=== PATIENT | female | born 2000 | race Caucasian/White ===

== ENCOUNTER 2020-04-19 09:00 | Outpatient (RCR) | payer OTHER, SELFPAY ==
--- NOTE | 2020-04-19 09:08 | BH.SGPN.GN ---
Behaviors/Verbalizations/Mental Status: []Eye contact is fair. Alert and oriented. Motor activity is appropriate. Appearance is casual. grooming is appropriate. Speech is Appropriate. Mood is depressed. Affect is flat. Thoughts are linear and logical. No evidence of psychosis or hallucinations. Client Response/Progress/Benefit: []Pt engaged in session AEB pt listening to others and sharing thoughts and feelings. Pt stated a mental health positive as going to her job interview yesterday. Pt reported she is in a toxic work environment so has been looking for a new job. Pt shared it makes her anxious about making a change so hasn't made a decision on whether she will take the job. Pt reported additional mental health positive as showing up to IOP today despite having thoughts of not coming. Pt reported she showed up because she has a sense of commitment and knows it will be helpful. Pt stated current stressor is school because she gets anxious which leads her to get behind on her work and avoid catching up. Narrative Note: []
--- NOTE | 2020-04-19 10:10 | BH.SGPN.GN ---
Behaviors/Verbalizations/Mental Status: []Client alert and oriented, casually dressed, hygiene appeared to be tended to. Eye contact fair. Motor activity appropriate. Speech within normal limits. Affect constricted, mood anxious. Thoughts linear, logical, no signs of hallucinations or delusions. Client Response/Progress/Benefit: []Client responded well to session, attentive and took notes throughout session and engaged in group activity. The group identified benefits of failure as: learning new skills, gains perspective, and helps individuals learn to succeed. The group identified impacts of fear of failure as: keeps stagnant, keeps from seeking help, increase of hopelessness, and fear of change. Client seemed to connect how failures can lead to positive changes. Client appeared to benefit from gaining awareness of the impact fear of failure can have on one?s mental health and wellbeing. Progress noted as client was willing to participate in group activity using opposite action on first day of IOP program. Will continue IOP to increase the use of healthy coping skills and prevent decompensation. Narrative Note: []
--- NOTE | 2020-04-19 11:10 | BH.SGPN.GN ---
Behaviors/Verbalizations/Mental Status: []Client alert and oriented, neatly dressed and groomed. Eye contact fair. Motor activity appropriate. Speech within normal limits. Affect flat, mood anxious. Thoughts linear, logical, no signs of hallucinations or delusions. Client Response/Progress/Benefit: []Client responded well to session, participating during the group activity and sharing in small group discussion. Client completed the fear of failure worksheet and reported that fear of failure has kept client from talking to people, committing fully to school, and attending events. Client able to identify barriers that reinforce fear of failure which included: comparing self to others, ?what ifs,? and negative thinking. Client attentive during discussion of the different strategies to help overcome fear of failure. Client reports plan to overcome her black and white thinking by avoiding absolute statements. Client appeared to benefit from increasing insight to barriers and learning healthy coping skills. First day of IOP tx. Will continue IOP tx to prevent decompensation, increase social support, and learn healthy coping skills. Narrative Note: []
--- NOTE | 2020-04-19 12:05 | BH.COMM ---
Communication Note - Communication with Client Communication Note: Therapist met with client after her first day of IOP program for a brief check-in. Client did not have any questions or concerns. Client understood the concept of groups and reported feeling impacted by group discussion in a positive way. Appeared to be future oriented.
--- NOTE | 2020-04-19 15:47 | BH.COMM ---
Communication Note - Communication with Client Communication Note: Met with pt to complete initial paperwork. No changes since pre-admission screening. Completed [place] Suicide Screening with low risk. Endorses passive wishes of within the last month, but denies any SI, plan, or intent in the last month. Does have a history of SI in her lifetime that client describes as ?passive.? Denies any history of intent, plans, or attempts in her lifetime. Does not have access to weapons. Does not present as imminent danger to herself due to no active SI, plan, intent, or hx of attempts. Future-oriented.
--- NOTE | 2020-04-23 09:00 | BH.SGPN.GN ---
Behaviors/Verbalizations/Mental Status: []Client alert and oriented, casually dressed. Eye contact poor. Motor activity appropriate. Speech within normal limits. Affect constricted, mood anxious. Thoughts linear, logical, no signs of hallucinations or delusions. Reviewed client?s symptom tracker, client scored himself within his baseline on 04/23/20. Client Response/Progress/Benefit: []Client responded well to session, engaged throughout and participated in group discussion. Client reported feeling ?overwhelmed? this morning. Reported having a meeting with her advisor tomorrow and was anxious to open up about life stressors as well as being overwhelmed with her school workload. Stated she feels uncomfortable saying no which results in an increase of stress. Benefited from group as peers provided positive support and suggestions to help ease client stress about tomorrow. Client?s goal is to advocate for her needs and practice self-care prior to her meeting by reading affirmations. Progress noted as client was open to discussion and feedback. Will continue IOP to decrease anxiety, promote the use of healthy coping skills, and prevent decompensation. Narrative Note: []
--- NOTE | 2020-04-23 10:00 | BH.SGPN.GN ---
Behaviors/Verbalizations/Mental Status: [] Client alert and oriented, casually dressed and groomed. Eye contact fair to good. Motor activity appropriate. Speech within normal limits, limited input provided. Affect constricted, mood anxious and dysthymic. Thoughts linear, logical, no signs of hallucinations or delusions. Client Response/Progress/Benefit: [] Client attentive but passive participant AEB providing no input to discussion however was taking notes and listening attentively to peers. Group identified the benefits of having a support system such as: emotional release, ability to rebound quicker after a setback, gain perspective, and not feeling alone. Group discussed different types of support, and client nodded as fellow participants shared potential resources. Group also discussed the barriers to accessing support in which client noted connecting with several examples provided. Did well to engage more in the social support activity AEB actively working with the group to complete task at hand and was willing to take direction when prompted. Noted feeling anxious but did well to challenge herself to engage and sit with the uncomfortable. Seemed to benefit from increased awareness of potential benefits of social support. Will continue IOP tx to promote gains and further reduce mental health sx. Narrative Note: []
--- NOTE | 2020-04-23 15:11 | BH.MDN ---
Multi-Disciplinary Note - Note 60-min Individual Time Started:: 11:20 Date: 04/23/20 Purpose of session/treatment goals addressed:: The purpose of this session was to gather information on client's current stressors, symptoms, and treatment goals. Another goal was to build rapport and provide psychoeducation. Eye Contact:: Good Motor Activity:: Appropriate - sitting on hands throughout Appearance:: Casual - wearing winter cap throughout session Speech:: Appropriate Mood:: Anxious, Dysthymic Affect:: Congruent Thoughts:: Linear, Logical, No evidence of hallucinations/delusions noted Staff Interventions:: Therapist used active listening and open-ended questions to explore client's current stressors, symptoms, mh treatment history, and explore treatment goals. Therapist used strengths based approaches to build rapport and provide emotional support. Therapist provided psychoeducation on how intrusive thoughts can impact mental health sx. Therapist gave client encouragement and normalized the impact of mental health has on daily functioning. Client Response:: Client responded well to session, open to meeting with therapist. Client stated she has been in therapy on various occasions since the age of 6, but began regular weekly outpatient therapy her freshman year of high school. over the years. Client reported she has been working with Ana Root at [facility] for the past several years which she finds to be ?mostly helpful?. Indicated that they have been working to address client longstanding issues with anxiety, specifically intrusive thoughts of and illness. Client self-describes herself as an ?existential thinker? which she indicates often contribute to her intrusive thoughts and increase her overall feelings of anxiety and depression. Additionally, Client discussed that her family life is ?really messy and just bad?. Went on to share that her mother recently got remarried which has been ?really weird? and she has struggled to develop a relationship with her stepfather but is working to improve this. Eluded to not having a healthy relationship with her biological father but did go into further detail. Noted that she has historically used avoidance and distraction to cope but has found this to be ultimately unhelpful as it does not reduce sx in the long run. Client identified her treatment goals to be: deal with symptoms, improve daily functioning, improve independence and self-advocacy, as well as challenge herself to be ?more comfortable with the uncomfortable?. Client receptive to emotional support and encouragement. Client also receptive to learning about intrusive thoughts and how they impact one?s self-confidence and ability to manage mental health sx. Risks/Concerns:: Client denies any active suicidal ideations, plan, and intent as of 04/23/20. Protective factors include fear of dying, friends, and goals for her future. Reports motivation to get better. Progress Toward Goals/Plan:: Client's first week of IOP, reports she is trying to be more comfortable in the treatment environment. She reports enjoying group so far and is hopeful that she will be able to engage more as she spends more time in the group setting. Client endorses a depressed mood, apathy, anhedonia, decreased appetite, low self-esteem, ruminations, and constantly feeling anxious. Client's symptoms have been impacting her school performance and ability to engage with others. Will continue IOP tx to prevent decompensation, reduce intensity of symptoms, and improve daily functioning. Time Stopped:: 12:20
--- NOTE | 2020-04-23 15:13 | BH.MTP ---
Master Treatment Plan - Patient Information Program Physician:: Dr. William Primary Therapist:: Nichelle Burnette - Psychiatric Diagnoses Psychiatric Diagnoses:: Major depressive disorder, recurrent, severe without psychosis; generalized anxiety disorder; obsessive-compulsive disorder history; mild autism spectrum disorder Diagnosis Code(s):: F33.2 - Estimated LOS Estimated LOS (in weeks):: 6 Problem/Goal #1 - Problem/Goal #1 Stated Goal:: Client will reduce depressive symptoms, passive thoughts of , and feelings of worthlessness due to Major Depressive Disorder through Intensive Outpatient Program. Description of Barriers: Limited support, difficulties communicating and advocating for mental health needs, difficulties setting boundaries, social anxiety which may impact group participation/engagement. Functional Impact: Patient is a 20-year-old female with a history of depression, anxiety, OCD and mild autism spectrum disorder who is referred by self to the [facility] behavioral health IOP program due to worsening symptoms of depression, anxiety and passive suicidal ideation for the past month. Client reports she has been unable to function at work or at home due to her worsening symptoms and almost quit her job as a result. At time of admission, Client endorsing difficulties leaving the house, apathy, anhedonia, limited motivation, interrupted sleep, decreased appetite, passive SI w/o plan or intent, feelings of worthlessness and hopelessness, poor decision making, rumination, decreased concentration, and crying spells. Current sx are impacting social, occupational, and educational areas. Reports she sometimes finds it hard to leave the house but is able to come to the IOP program. Limited supports but reports her for primary support she has her mom and friend some friends. Goal Relevant Strengths/Supports: CLient has had previous mental health tx and is familar with terms/treatment modalities, reports motivation to improve, willingness to try new interventions, intelligent, has insight into triggers and barriers - Objectives Objective #1 Stated Objective: Client will learn and utilize 2-3 healthy coping strategies to manage depressive symptoms and decrease use of unhealthy coping skills. Interventions: Therapist will assist client in learning internal coping strategies to manage depressive symptoms, along with helping client identify triggers and replace unhealthy coping skills. Discharge Criteria: Client will have achieved this goal when can verbalize 2-3 healthy coping skills and reports coping skills effectively managing depressive symptoms. Target Date: 06/01/20 Review Date: 05/18/20 Objective #2 Stated Objective: Pt will decrease depressive symptoms AEB pt?s score on the DSM 5 cross-cutting measure and improve pt?s daily functioning. Interventions: Through groups and individual therapy, pt will be provided with education on cognitive distortions, mistaken beliefs, and identifying and combating negative self-talk. Therapist will assist pt with getting back into the activities she once enjoyed as well as increasing healthy coping strategies. Discharge Criteria: Pt will have met this goal when pt?s score on the DSM 5 cross cutting measure for depression has been decreased and per pt?s report daily functioning has improved Target Date: 06/01/20 Review Date: 05/18/20 Problem/Goal #2 - Problem/Goal #2 Stated Goal:: Stabilize anxiety levels while increasing ability to function and decreasing ruminative thoughts on a daily basis through Intensive Outpatient Program. Description of Barriers: Limited support, difficulties communicating and advocating for mental health needs, difficulties setting boundaries, social anxiety which may impact group participation/engagement. Functional Impact: Patient is a 20-year-old female with a history of depression, anxiety, OCD and mild autism spectrum disorder who is referred by self to the [facility] behavioral health IOP program due to worsening symptoms of depression, anxiety and passive suicidal ideation for the past month. Client reports she has been unable to function at work or at home due to her worsening symptoms and almost quit her job as a result. At time of admission, Client endorsing difficulties leaving the house, apathy, anhedonia, limited motivation, interrupted sleep, decreased appetite, passive SI w/o plan or intent, feelings of worthlessness and hopelessness, poor decision making, rumination, decreased concentration, and crying spells. Current sx are impacting social, occupational, and educational areas. Reports she sometimes finds it hard to leave the house but is able to come to the IOP program. Limited supports but reports her for primary support she has her mom and friend some friends. Goal Relevant Strengths/Supports: CLient has had previous mental health tx and is familar with terms/treatment modalities, reports motivation to improve, willingness to try new interventions, intelligent, has insight into triggers and barriers - Objectives Objective #1 Stated Objective: Client will learn and implement 2-3 calming skills to reduce overall anxiety and decrease avoidance behavior. Interventions: Therapist will teach client calming/relaxation skills. Assist pt with identifying warning signs and triggers to increased anxiety. Teach pt in the moment strategies to manage emotions when in anxiety provoking situation. Discharge Criteria: Client will have achieved this goal when can verbalize at least 2 calming skills and report decrease in avoidance of anxious situations. Target Date: 06/01/20 Review Date: 05/18/20 Objective #2 Stated Objective: Pt will decrease anxious symptoms AEB pt?s score on the DSM 5 cross-cutting measure improve pt?s daily functioning. Interventions: Through groups and individual therapy, pt will be provided education about anxiety?s impact on body and common physiological reaction to anxiety. Therapist will teach pt appropriate breathing techniques and build healthy coping skills to manage daily anxieties. Discharge Criteria: Pt will have met this goal when pt?s score on the DSM 5 cross cutting measure for anxiety has been decreased and per pt?s report daily functioning has improved. Target Date: 06/01/20 Review Date: 05/18/20
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
--- NOTE | 2020-04-25 09:40 | BH.NA ---
Physical Data - Vital Signs Pulse Rate: 75 Blood Pressure: 121/80 - Height/Weight Height: 1.57 m Weight:: 53.524 kg Weight in Pounds: 118.0 lbs Nutritional History - Appetite Nutritional Instructions:: If client shows signs of a swallowing problem, weight change of 10 pounds or more in the last month, or is on a diabetic diet, the physician will review and request a dietitian consult, as appropriate. All unintentional weight loss will be referred to the physician for decision on need for dietitian consult. Describe your appetite:: Fair Additional nutritional information:: Client states she has noticed a decrease in her appetite. Functional Assessment - Sleep Pattern Describe any problems with sleeping: Client states she sleeps 8-10 hours per night. - Activities Motor Activity:: Functional Sensory/Communication Assess - Communication Problems Do you have difficulty understanding what people are saying?: No Medical Problems/History - Additional History Additional comments:: depression, anxiety Surgical History - Surgical History Have you had any surgeries? If so, list type and date:: No Substance Abuse - Substance Abuse Please describe substance abuse in the last 30 days:: Client states she drinks alcohol once per week. Client denies tobacco or substance use. Client states she drinks caffiene once per day. Mental Status Summary - Mental Status Significant Findings/Observations on Appearance and Mood:: Client is alert and oriented x 4. Client is casually groomed with good hygiene. Client is wearing a mask due to COVID 19 pandemic. Client makes poor eye contact and speaks with soft voice. Client appears mildly depressed and anxious. Client makes logical associations. Client denies delusions/hallucinations. Client reports passive SI with no plan. Suicide Assessment - Suicidal Ideation Are you currently or have you been suicidal in the past?: Yes - passive SI would not care if I didn't wake up in the morning Suicidal Intentional Rating Scale (SIRS): Current suicidal thoughts/No plan/Contracts for safety Physician Notification: If Active suicidal thoughts/Will not contract for safety is checked, contact physician and document in the Physician Notification section below. Past Psychiatric History - MH Treatment Hx Past Psychiatric Medications:: Prozac Age of first mental health symptoms: Client states she was diagnosed with anxiety and depression around age 14. Describe (age, circumstance, etc) any past hospitalizations: None Current providers for mental health treatment (counselor, psychiatrist, shoe parts caser, etc.): [facility] Fall Risk Assessment - Age Age: Less than 60 - Mental Status Mental Status: Willing & able to ask for assistance when needed - Physical Status Physical Status: No problems - Impairments Impairments: None - Elimination Elimination: Continent AND independent - Gait or Balance Gait or Balance: Walks independently - Hx of Falls History of falls in the past 6 months: No known history - Medications/Substances Medications/substances used within the past 24 hours or ordered to administer: None of the medications/substances list above - Total Score Total Points:: 0 RN Summary of Impressions - Impressions Recommendations: Include psychiatric and medical issues, treatment planning recommendations, and discharge planning needs. Impressions: Psychiatric Issues: major depressive disorder, recurrent, severe without psychosis; generalized anxiety disorder; obsessive-compulsive disorder history; mild autism spectrum disorder - Level of Care How do the client's current symptoms and functional deficits support need for this level of care?: Client self-referred herself to IOP after feelings of depression and limited benefits from outpatient counseling. Client reports she has been feeling mental health symptoms for awhile, reporting decreased motivation and feeling like What I was doing wasn't working. Client endorses low energy, anhedonia, feelings of worthlessness and feeling overwhelmed. Client reports passive SI, stating she does not have a suidical plan but states she sometimes wouldn't mind if I didn't wake up tomorrow. IOP will promote gains and prevent further decompensation while providing social support and skills training.
[2020-04-25 10:02] VITALS: BP 121/80; PULSE 75
--- NOTE | 2020-04-25 10:10 | BH.SGPN.GN ---
Behaviors/Verbalizations/Mental Status: []Client alert and oriented, neatly dressed and groomed. Eye contact fair. Motor activity appropriate. Speech within normal limits. Affect constricted, mood anxious and dysthymic. Thoughts linear, logical, no signs of hallucinations or delusions. Client Response/Progress/Benefit: []Pt was a passive participant in group discussion and was attentive during psychoeducation. Participated in short activity about automatic thoughts. Group was primarily educational and introduced and gave examples of the 10 cognitive distortions. Benefited from education and increased awareness of cognitive distortions and role that they play in negative thoughts and emotions. Pt has severe social anxiety, so she is quiet during group sessions. Will continue IOP tx to prevent decompensation, increase healthy coping skills, and improve daily functioning impacted by anxiety. Narrative Note: []
--- NOTE | 2020-04-25 11:10 | BH.SGPN.GN ---
Behaviors/Verbalizations/Mental Status: []Client alert and oriented, casual dress, hygiene tended to. Eye contact poor. Motor activity appropriate. Speech within normal limits. Affect flat. Mood anxious and depressed. Thoughts linear, logical, no signs of hallucinations or delusions. Client Response/Progress/Benefit: []Client was a passive participant AEB client only providing input during small group work, appeared to listen attentively to peers and completed worksheet. Client attentive during psychoeducation and additional discussion on cognitive distortions. Client appeared to listen to discussion on how to reframe distorted thoughts into more realistic, rational statements. in small group client shared her distorted thought is If this assignment isn't the best I could possibly do then I'm not going to turn it in. Client able to reframe distorted thought to There are always revisions you can make that doesn't mean it's not good. Also you can't get a good grade if you don't turn anything in. Client seemed to benefit from practicing identifying and reframing distorted thoughts. client is to continue IOP to increase use of healthy coping, decrease anxious symptoms and prevent decompensation.
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
--- NOTE | 2020-04-25 12:56 | BH.DR.ITP ---
Initial Treatment Plan - Patient Information Visit Information: ADMISSION DATE: EXPECTED LOS: 4-6 weeks - Problems/Symptoms Problem #1:: Depression Symptom:: Worthlessness, hopelessness, sadness, anhedonia, decreased appetite, disruption of sleep, passive suicidal ideation, passive thoughts of Problem #2:: Anxiety Symptom:: Worry, negative rumination, mild rituals
--- NOTE | 2020-04-26 09:00 | BH.SGPN.GN ---
Behaviors/Verbalizations/Mental Status: []Client alert and oriented, neatly dressed and groomed. Eye contact fair. Motor activity appropriate. Speech within normal limits. Affect flat, mood dysthymic and anxious. Thoughts linear, logical, no signs of hallucinations or delusions. Reviewed client?s symptom tracker, no risk for suicidal ideation, plan, or intent as of 04/26/20 Client Response/Progress/Benefit: []client responded well to session, anxious, but participated in check-in. Client reports feeling indifferent this morning as client has several stressors she does not know how to cope with. Client reported she had put her two-week notice in at her job, but because her boss never acknowledged this, client has kept working despite it being past two-weeks. Client admits to a long-standing history of not being able to set boundaries or self-advocate. Client shared she struggles with indecisiveness in many areas of her life. Client also feels stressed about a recent appointment with her academic director. Client stated a positive was that she showed up for the meeting, but client did not advocate for the classes she wanted. Client received supportive statements from peers and wallpaper inspector. Progress limited as client's anxiety continues to impair her functioning. Will continue IOP tx to prevent decompensation, increase healthy boundaries, and improve mood stability. Narrative Note: []
--- NOTE | 2020-04-26 10:08 | BH.SGPN.GN ---
Behaviors/Verbalizations/Mental Status: [] Client alert and oriented, casually dressed and groomed. Eye contact fair, often looking down or away. Motor activity appropriate. Speech within normal limits, minimal input provided. Affect constricted, mood anxious and depressed. Thoughts linear, logical, no signs of hallucinations or delusions. Client Response/Progress/Benefit: [] Client receptive to session, passive participant but remained engaged AEB listening and taking notes throughout. Appeared to connect with topic as the group brainstormed the positive and negative aspects of stress on physical and mental health. Client often struggled to maintain eye contact and was looking down or away a majority of session, which may be attributed to self-report of increase in social anxiety. Client willing to complete stress jar activity in which participants identified current stressors impacting mental health; however, declined to share with group. Progress is unable to be determined due to limited input provided. Continued avoidance may impact ability to manage social anxiety long-term. Recommended to continue with IOP tx to improve skill application, further reduce symptomology, and prevent decompensation. Narrative Note: []
--- NOTE | 2020-04-26 11:12 | BH.SGPN.GN ---
Behaviors/Verbalizations/Mental Status: []Client alert and oriented, casually dressed and groomed. Eye contact poor. Motor activity appropriate. Speech within normal limits. Affect constricted, mood anxious. Thoughts linear, logical, no signs of hallucinations or delusions. Client Response/Progress/Benefit: []Client mostly passive participant in session AEB choosing to not provide input in front of group, however appeared to listen attentively to others and taking notes throughout. Client remained attentive during discussion about the 4 A's of managing stress and discussed connecting with the various benefits of each. Individually to therapist client stated she wants to work on stressor of school. Client reported she is going to alter her expectations of self because she recognizes expectations are often unrealistic. Client seemed to benefit from increased awareness of the impact of stress on mental health and increasing repertoire of stress management strategies. Client is to continue IOP level of care to decrease anxiety, increase healthy coping and prevent decompensation. Narrative Note: []
== END 2020-04-29 23:59 ==
LOC: BHIOP 09:00
PROVIDERS: Referring Provider Psychiatry & Neurology Psychiatry; Visit Provider Psychiatry & Neurology Psychiatry
DX: F33.2 Major depressive disorder, recurrent severe without psychotic features (principal); F41.1 Generalized anxiety disorder; F42.9 Obsessive-compulsive disorder, unspecified; F84.0 Autistic disorder; Z79.899 Other long term (current) drug therapy; Z81.8 Family history of other mental and behavioral disorders
CPT/HCPCS: H0035; 90837; 90853

== ENCOUNTER 2020-04-30 09:00 | Outpatient (RCR) | payer OTHER, SELFPAY ==
[2020-04-30 00:39] VITALS: BP 121/80; PULSE 75
--- NOTE | 2020-04-30 09:00 | BH.SGPN.GN ---
Behaviors/Verbalizations/Mental Status: []Client alert and oriented, casually dressed. Eye contact poor to fair. Motor activity appropriate. Speech within normal limits. Affect constricted, mood anxious. Thoughts linear, logical, no signs of hallucinations or delusions. Reviewed client?s symptom tracker, no risk or plan for suicide ideation, plan, or intent as of 04/30/20. Client Response/Progress/Benefit: []Client responded well to session, engaged throughout and participated in group discussion. Client reported feeling ?unsettled? this morning as her stressors were intense over the weekend. Client reported having uncomfortable feelings with providing support to others related to over the weekend. Client stated she tried to detach herself from feeling sadness as well as feeling uncomfortable. Benefited from group as other group members provided positive support and feedback to allow client to feel validated. Client shared her positive as making it through the weekend and attending IOP group today. Progress noted as client remains future oriented, but client continues to report avoidance behaviors and anxiety that hinder functioning. Will continue IOP to increase the use of healthy coping skills, challenge negative thoughts, and prevent decompensation. Narrative Note: []
--- NOTE | 2020-04-30 10:07 | BH.SGPN.GN ---
Behaviors/Verbalizations/Mental Status: []Alert and oriented. Eye contact is fair. Motor activity is appropriate. Appearance is casual. Speech is Appropriate. Mood is anxious and depressed. Affect is constricted. Thoughts are linear and logical. No evidence of psychosis. Client Response/Progress/Benefit: []Pt was a passive participant AEB pt not making any contributions throughout group session. Appeared to be attentive during psychoeducation. Client listened as group worked together to identify forces that can impact growth and overall mental health. Listened to group identify internal and external forces of life. Pt seemed benefited from increased awareness of the impact positive and negative forces can have on mental health and personal growth. Will continue in IOP to improve emotional regulation, increase anxiety reduction techniques and prevent decompensation. Narrative Note: []
--- NOTE | 2020-04-30 11:10 | BH.SGPN.GN ---
Behaviors/Verbalizations/Mental Status: [] Eye contact is fair to good. Alert and oriented. Motor activity is appropriate. Appearance is casual. grooming is appropriate. Speech appropriate, limited input provided. Mood is anxious and depressed. Affect is constricted. Thoughts are linear and logical. No evidence of psychosis or hallucinations. Client Response/Progress/Benefit: [] Pt receptive of session, listened attentively to peers and participated in the activity. Did well to provide some input to group discussion when prompted, however continues to struggle in this area. Group processed the activity and identified positive and negative forces impacting ability to complete the challenge. Pt nodding as group discussed the positive and negative impacts communication had on ability to complete challenge activity. Pt was attentive during psychoeducation and appeared to benefit from increased insight on the impact of negative and positive forces on mental wellness. Completed the personal forces identification worksheet. Identified wanting to focus on increasing healthy relationships and supports as a positive force on her mental health. Noted she could start by setting more boundaries with toxic supports. Pt recommended continued IOP tx to improve healthy coping skills, reduce mental health sx, and prevent decompensation. Narrative Note: []
--- NOTE | 2020-04-30 14:31 | BH.COMM ---
Communication Note - Communication with Client Communication Note: Therapist contacted pt outpatient therapist to discuss treatment goals and coordinate care. Will continue to provide regular updates on pt progress.
--- NOTE | 2020-05-01 08:21 | BH.COMM ---
Communication Note - Communication with Client Communication Note: Client continues to decline psychiatry services and reports not taking any psychiatric medications at this time. Reports no plans to begin psychiatric medication and would prefer not to meet with program psychiatrist.
--- NOTE | 2020-05-01 10:10 | BH.SGPN.GN ---
Behaviors/Verbalizations/Mental Status: [] Client alert and oriented, casually dressed and appropriately groomed. Eye contact fair, often looking down/away. Motor activity appropriate. Speech within normal limits. Affect congruent, mood anxious and apathetic, Thoughts linear, logical, no signs of hallucinations or delusions. Client Response/Progress/Benefit: []Client receptive of session, attentive and taking notes throughout however continues to struggle with providing input. Client reports plans to begin challenging self to increase group participation. Client appeared to connect with topic of communication AEB actively listening, nodding, and taking notes. Group identified potential barriers to healthy communication as: high emotions, making assumptions, shutting down, and not being honest with self/others. Remained attentive during psychoeducation on the four communication styles, providing input throughout. Client shared connecting most with the passive communication style, indicating she often tries to avoid confrontation when possible. Benefited from increased insight regarding own communication style and impacts this has on overall mental health. Progress limited as client continues to struggle with engagement in group setting. Client will continue IOP to improve healthy coping skills, reduce mental health sx, and prevent decompensation. Narrative Note: []
--- NOTE | 2020-05-01 11:15 | BH.SGPN.GN ---
Behaviors/Verbalizations/Mental Status: []Client alert and oriented, casually dressed and appropriately groomed. Eye contact fair. Motor activity appropriate. Speech WNL. Affect constricted, mood dysthymic and anxious. Thoughts linear, logical, no signs of hallucinations or delusions. Client Response/Progress/Benefit: []Client responded well to session AEB client listening attentively to others and providing input during group discussion on the pay offs and costs of the different communication styles. Client identified she most often has passive style of communication which results in her needs not getting met. Attentive during psychoeducation on interpersonal DBT skill MINDI and client selected a communication skill to practice. Client selected the skill of asserting herself which she will first practice at work. Client seemed to benefit from increasing awareness of healthy strategies to improve communication. Will continue IOP tx to increase consistent use of healthy coping, improve confidence and prevent decompensation.
--- NOTE | 2020-05-01 11:27 | BH.MDN_ITS ---
Multi-Disciplinary Note - Note 45-min Individual Time Started:: 09:23 Date: 05/01/20 Purpose of session/treatment goals addressed:: The purpose of this session was to work on goal #2 objective #1 and objective #2 of client's tx plan. Eye Contact:: Fair - often looking down or away throughout discussion Motor Activity:: Appropriate Appearance:: Casual Speech:: Appropriate Mood:: Anxious, Dysthymic Affect:: Congruent Thoughts:: Linear, Logical, No evidence of hallucinations/delusions noted Staff Interventions:: Therapist provided psychoeducation on anxiety maintenance cycles and safety behaviors reinforcing these cycles. Therapist worked with client to identify impact of avoidance in reinforcing decisional anxiety. Used Motivational Interviewing to aid Client in identifying a small, realistic goal for beginning to break unhealthy maintenance cycles. Client Response:: Client responded well to session, open to meeting with therapist. Client reports since last week she has been coping with the loss of a friend?s sister better. Reports she feels she is able to do so by not focusing on the existential thoughts she has related to this stressor. Noted her depression has been less of an issue and is struggling more with anxiety at the moment. Explained she often struggles with making decisions about ?anything really. I struggle to even decide what to eat because I don?t want to make the wrong decision, so I just don?t eat anything?. Able to connect with psychoeducation on anxiety maintenance cycles and safety behaviors. Client identified the role avoidance has played in maintaining indecisiveness. Client and therapist discussed strategies for beginning to address anxiety and reviewed the importance of exposure in reducing overall discomfort causing increased anxiety. Client identified a small goal of working on reducing avoidance by challenging herself to speak once in group setting on days she attends IOP program. Risks/Concerns:: None noted. Client denies any active SI, plan, or intent to date. Future oriented AEB discussing plans for summer. Progress Toward Goals/Plan:: Client appears to be responding well to tx AEB client's consistent attendance and willingness to begin working to improve overall group engagement. Client noted improved ability to replace negative thoughts over the weekend. She continues to endorse an apathetic mood, ruminatio ns and intrusive thoughts, difficulties in making decisions, and low self- esteem. Client is still not functioning at her baseline. Client will continue IOP tx to prevent decompensation, improve daily functioning, and increase self- care. Time Stopped:: 10:03
--- NOTE | 2020-05-03 09:05 | BH.SGPN.GN ---
Behaviors/Verbalizations/Mental Status: []Client alert and oriented, casually dressed. Eye contact poor. Motor activity appropriate. Speech within normal limits. Affect flat, mood anxious. Thoughts linear, logical, no signs of hallucinations or delusions. Reviewed client?s symptom tracker, no risk or plan for suicide ideation. Client Response/Progress/Benefit: []Pt responded well to session AEB pt listening attentively to others and sharing thoughts and feelings. Pt stated a mental health positive was making decision to on a family vacation. Pt reported she had been avoiding make a decision because gets too anxious about what to do. Pt admitted she kind of took the pressure off herself to make the decision by asking if a friend would go with her and when the friend said yes then that made the decision for her. Pt stated current stressor is recognizing she is avoiding a lot of things in life, which she recognizes doesn't help her anxiety. Pt seemed to benefit from support from peers. Pt to continue IOP to increase healthy coping, decrease avoidance behavior and prevent decompensation. Narrative Note: []
--- NOTE | 2020-05-03 10:07 | BH.SGPN.GN ---
Behaviors/Verbalizations/Mental Status: []Client alert and oriented, neatly dressed and groomed. Eye contact avoidant. Motor activity appropriate. Speech within normal limits. Affect flat, mood anxious. Thoughts linear, logical, no signs of hallucinations or delusions. Client Response/Progress/Benefit: []Client was a passive participant and appeared highly anxious AEB restlessness and avoidant eye contact. Client listened to the discussion of self-care. Client listened as the group discussed consequences of not practicing self-care. Client listened during the discussion of the common myths about self-care and debunking of these myths. The group shared how these myths have turned into personal barriers for them. Client seemed to benefit from increased awareness of the importance of self-care and challenging common myths that prevent practicing self-care. Client continues to be highly anxious in group setting, but appears to be getting along well with peers. Will continue IOP tx to prevent decompensation and increase coping skills to manage anxiety that impairs functioning. Narrative Note: []
--- NOTE | 2020-05-03 11:07 | BH.SGPN.GN ---
Behaviors/Verbalizations/Mental Status: []Client alert and oriented, casually dressed and groomed. Eye contact fair, often avoidant. Motor activity restless. Speech within normal limits, limited input provided. Affect congruent, mood anxious and depressed. Thoughts linear, logical, no signs of hallucinations or delusions. Client Response/Progress/Benefit: []Client continues to struggle with being an active participant in group sessions. Often is willing to participate in challenge activity as well as listen attentively to peers, however struggles with contributing to discussion. Attentive during group discussion on the various areas of self-care and types of self-care activities for each area. Client willing to begin working on worksheet in which she reflected on current self-care practices and identified what self-care activities she wants to start using. Client shared that she would like to improve physical self-care. Indicated plans to work on this by working on eating more regular meals. Struggles with identifying strategies to aid in successfully accomplishing this goal however responded well to suggestions provided such as planning meals ahead of time. Client progress limited as difficulties engaging continue to reinforce sx of anxiety. Will continue IOP tx to further promote the use of healthy coping skills, reduce mental health sx, and improve daily functioning. Narrative Note: []
--- NOTE | 2020-05-07 09:00 | BH.SGPN.GN ---
Behaviors/Verbalizations/Mental Status: []Client alert and oriented, casually dressed. Eye contact fair. Motor activity appropriate. Speech within normal limits. Affect constricted, mood anxious. Thoughts linear, logical, no signs of hallucinations or delusions. Reviewed client?s symptom tracker, no risk or plan for suicide ideation, plan, or intent as of 05/07/20. Client Response/Progress/Benefit: []Client responded well to session, engaged throughout and participated in group discussion. Client reported feeling ?wired? this morning. Client was unable to think of current goals related to treatment. Reported a positive and stressor as driving to a friend late at night to help her, although client was unable to say no to transporting a friend to multiple locations. Client said she was feeling anxious but did not say anything to her friend. Client identified a healthy coping skill as listening to calming music on her drive to reduce anxiety. Benefited from group as peers provided positive support and ideas to improve boundary setting. Will continue IOP to increase the use of healthy coping skills, set appropriate boundaries, and increase self-advocacy. Narrative Note: []
--- NOTE | 2020-05-07 10:05 | BH.SGPN.GN ---
Behaviors/Verbalizations/Mental Status: []Client alert and oriented, neatly dressed and groomed. Eye contact avoidant. Motor activity restless. Speech within normal limits. Affect flat, mood anxious. Thoughts linear, logical, no signs of hallucinations or delusions. Client Response/Progress/Benefit: []Client somewhat engaged participant AEB listening attentively to peers, but appeared distracted and anxious. Group discussed the quote as well as unhealthy coping skills. Group gave examples of unhealthy coping skills such as: personalizing, avoiding, substance use, isolation, and lashing out. The group stated unhealthy coping skills tend to be easy, habitual, and temporary relief. Client was quiet during discussion, but client participated in the group activity. Client seemed to benefit from increased awareness of the importance of increasing healthy coping skills and consequences of utilizing unhealthy coping skills. Client?s progress continues to be minimal as client reports difficulty saying no when anxious which reinforces her mental health symptoms. Will continue IOP tx to reduce avoidance behaviors, learn to set healthy boundaries, and improve mood stability. Narrative Note: []
--- NOTE | 2020-05-07 11:07 | BH.SGPN.GN ---
Behaviors/Verbalizations/Mental Status: [] Client alert and oriented, casual dress, hygiene tended to. Eye contact fair, often avoidant. Motor activity appropriate. Speech within normal limits, limited input provided. Affect constricted, mood depressed and anxious. Thoughts linear, logical, no signs of hallucinations or delusions. Client Response/Progress/Benefit: [] Client responded well to session, actively listening, and at times taking notes throughout. Continues to struggle with participation and often looks down or away to avoid providing input to discussion. Continued avoidance may be reinforcing anxiety and preventing lasting progress. Group discussed the different categories of coping skills which included distraction, emotional release, grounding, self-love, and thought challenging. With prompt, client participated in creating a coping skills ?menu? from the five categories of coping skills. Client's coping skill menu included: reading, art, deep breathing, keeping track of accomplishments, asking herself ?What would I tell a friend?? when struggling with distorted thoughts. Shared she would like to focus more on using art to cope when feeling emotionally overwhelmed and keeping track of daily accomplishments. Progress limited as client continues to struggle with consistent application of skills learned. Appeared to benefit from increasing repertoire of healthy coping skills. Will continue tx to continue challenging distorted thoughts, increase mental health sx management, and prevent decompensation. Narrative Note: []
--- NOTE | 2020-05-08 11:10 | BH.SGPN.GN ---
Behaviors/Verbalizations/Mental Status: []Client alert and oriented, casually dressed and groomed. Eye contact avoidant at times. Motor activity appropriate. Speech within normal limits. Affect flat, mood anxious. Thoughts linear, logical, no signs of hallucinations or delusions. Client Response/Progress/Benefit: []Client was an active participant in activity, but quiet while group brainstormed strategies. Engaged during activity and listened to ideas on how to cope with internal barriers that keep clients stuck from moving towards goals. Barriers identified by client included: avoidance, fear of failure, indecision, and lack of confidence. Strategies identified for overcoming these barriers included: thought challenging, opposite action, decisional balance, setting a time limit, and writing lists. Client wants to work on overcoming the barrier of indecision by making a list of things she has to do each day and focus on getting one thing done. Benefited from group by identifying obstacles and solutions to desired reality. Client continues to be passive in group and has been struggling with implementing coping skills outside of IOP. Will continue IOP tx to reduce avoidance, improve daily functioning, and combat distortions. Narrative Note: []
--- NOTE | 2020-05-08 14:15 | BH.MDN ---
Multi-Disciplinary Note - Note 45-min Individual Time Started:: 10:14 Date: 05/08/20 Purpose of session/treatment goals addressed:: Purpose of session was to assess pt's current symptoms and stressors. Other topics included addressing Treatment goal #2 objectives# 1 and #2. Eye Contact:: Fair Motor Activity:: Restless Appearance:: Casual Speech:: Appropriate Mood:: Anxious, Depressed Affect:: Congruent Thoughts:: Logical, Racing, No evidence of hallucinations/delusions noted Staff Interventions:: Therapist used open ended questions to elicit information on pt's current symptoms and stressors, as well as coping skill application. Reviewed homework and discussed barriers preventing homework completion and reinforcing avoidance behaviors. Used Behavior Chain Analysis to highlight role of continued avoidance in reinforcing anxiety and preventing long-term goal achievement. Applied Behavior Activation skills to identify small goals for reducing avoidance and promoting help-seeking behaviors. Client Response:: Client responded well to session, open to meeting with therapist. Noted not completing homework to engage at least once in group and discussed strategies for promoting group participation moving forward. Client reports she is currently struggling with feeling ?really overwhelmed? by her schoolwork and fears she may fail. Upon further discussion Client revealed she had been avoiding completing assignments and skipped several classes which has resulted in her being behind in class and ultimately dropping several courses. Noted she is able to take new courses or retake the courses she was failing but fears she will fall back into the same pattern of behaviors and ultimately end up failing again. Willing to work with therapist on challenging distortions of absolute thinking, catastrophizing, and overgeneralizing. Completed behavior chain analysis to identify how avoidance as a safety behavior has impacted school performance and reinforced self-deprecating thoughts. Client identified at times giving into avoidance behaviors because ?it?s easier if I make myself fail than if I have to face failure?. Discussed strategies for beginning to combat avoidance and proactively set herself up for success academically. Identified that informing her professors of her anxiety may be helpful in promoting attendance and reducing fear they will not be understanding if she becomes overwhelmed. Client struggled with committing to self-identified plan of asking professors for help; however, upon reviewing potential costs of not asking for help was agreeable to start by emailing one professor to ask for help this week. Risks/Concerns:: None noted. Client denies any active SI, plan, or intent to date. Future oriented AEB discussing plans to attend IOP tx . Progress Toward Goals/Plan:: Client continues to report finding the group environment helpful but struggles with anxiety about providing input to groups. Expressed feeling uncomfortable and fears she will make a mistake so she avoids engagement. Expressed this is similar in completing anxiety provoking tasks in daily life and avoidance has reach the point in which she is now struggling to complete her academic needs. Client has insight into barriers and potential skills for addressing identified barriers but struggles with follow-through. She continues to endorse an apathetic mood, ruminations and intrusive thoughts, difficulties in making decisions, and low self-esteem. Client is still not functioning at her baseline. Client will continue IOP tx to prevent decompensation, improve daily functioning, and increase self-care. Time Stopped:: 10:54
--- NOTE | 2020-05-10 09:05 | BH.SGPN.GN ---
Behaviors/Verbalizations/Mental Status: []Client alert and oriented, casually dressed and appropriately groomed. Eye contact fair. Motor activity appropriate. Speech within normal limits. Affect constricted, mood anxious and depressed. Thoughts linear, logical, no signs of hallucinations or delusions. Per symptom tracker pt denies suicidal ideation, plan or intention to date. Client Response/Progress/Benefit: []Pt responded well to session as evidenced by pt openly sharing thoughts and feelings. Pt connected with peer during check-in. Pt stated she is also having a difficult time ending a relationship. pt reported she recognizes current relationship is not healthy but continues to maintain relationship because has limited support. Pt stated she has a hard time setting boundaries. Pt identified a mental health positive as going on a walk and being more active because of a cardio class she signed up for during this semester. Pt progress variable AEB pt continuing to struggle with setting boundaries and utilizing skills outside treatment environment. Pt to continue IOP to increase healthy coping, reduce avoidance behavior and prevent decompensation. Narrative Note: []
--- NOTE | 2020-05-10 10:15 | BH.SGPN.GN ---
Behaviors/Verbalizations/Mental Status: []Client alert and oriented, casually dressed and groomed. Eye contact fair to good. Motor activity appropriate. Speech within normal limits. Affect congruent, mood dysthymic and anxious. Thoughts linear, logical, no signs of hallucinations or delusions Client Response/Progress/Benefit: []Client engaged in session AEB client providing input when prompted, taking notes, and listening attentively to peers. Client shared connecting with the importance of setting boundaries in order to improve mental health and reduce anxiety. Client assisted group with identifying barriers to setting healthy boundaries. These included: past negative experiences, low self-worth, fear they won?t respect them, fear of hurting others, and distorted thoughts. Shared a barrier she has experienced in the past is feeling she does not have the ?personal strength? to say ?no? to others. Client attentive during psychoeducation on the types of boundaries. Listened as participants provided examples and noted struggling to time boundaries when it comes to work/school life balance. Client seemed to benefit from increased awareness of how boundaries impact mental health. Will continue IOP tx to improve use of healthy coping, improve confidence levels, and reduce mental health sx. Narrative Note: []
--- NOTE | 2020-05-10 11:15 | BH.SGPN.GN ---
Behaviors/Verbalizations/Mental Status: []Client alert and oriented, neatly dressed and groomed. Eye contact fair-improved from previous sessions. Motor activity appropriate. Speech within normal limits. Affect constricted, mood anxious. Thoughts linear, logical, no signs of hallucinations or delusions. Client Response/Progress/Benefit: []Client responded well to session, connecting with peers and receptive to supportive statements. Client engaged in the boundary self-assessment activity and attentive during psychoeducation on the different boundary styles. Client reported ?I?m a mix of porous and rigid.? Client stated she avoids making new relationships and she keeps her emotions to herself. However, client reports that with her current supports, client feels unable to say no or set boundaries. Client reports this increases anxiety and negative self-talk. Client participated in brainstorming strategies to improve boundary setting and reports wanting to work on practicing honest self-reflection. Progress noted in client?s increased participation today. Client to continue IOP tx to prevent decompensation, reduce avoidance behaviors, and improve daily functioning. Narrative Note: []
--- NOTE | 2020-05-15 14:53 | BH.MTP_ITS ---
Treatment Plan Review Date of Admission:: 04/19/20 Date of Treatment Plan Review:: 05/16/20 Admitting Diagnoses:: Major depressive disorder, recurrent, severe without psychosis; generalized anxiety disorder; obsessive-compulsive disorder history; mild autism spectrum disorder Current Diagnoses:: Major depressive disorder, recurrent, severe without psychosis; generalized anxiety disorder; obsessive-compulsive disorder history; mild autism spectrum disorder Patient's Response to Treatment:: Client has been responding somewhat well to treatment, though is demonstrating limited progress towards treatment goals. Client remains a mostly passive group member. She often struggles to give insight to discussion, though does well to provide input when prompted. Receptive of feedback provided by peers and able to connect the group topics to her daily life. Client however often reports feeling apathetic and unmotivated which impedes ability to consistently apply coping skills learned in groups and individual sessions. Client additionally struggles with anxiety which often reinforces avoidance of applying new skills when feeling uncomfortable. Client?s attendance has been mostly consistent, however in the past week has been late once and canceled twice. Engagement could continue to improve as she challenges herself to step outside comfort zone. Client has increased self-awareness of personal warning signs, distortions and safety behaviors reinforcing anxiety and depression, and has learned numerous coping skills. Client score on the DSM-5 unable to be obtained due to client canceling last two scheduled sessions. Reports decrease in depression since admission to IOP program as she no longer reports suicidal ideation. Client will continue IOP tx to reduce the intensity of anxiety symptoms and to promote application of opposite action and thought challenging skills. Reports she has not been taking medication prescribed by program psychiatrist as she indicates I don't take medications. Status of Current Problems and Symptoms: Client continues to endorse severe anxiety that impacts client's ability to function. Client stated she has been struggling with avoiding making decisions in her life such as maintaining employment despite planning to quit, avoidance of school work or asking for help from professors, and avoidance of setting boundaries with unhealthy supports that reinforce client mental health sx. Problem #1 Problem Name:: Depression, SI Status of Goals:: Not complete. Objective 1- Not complete and in progress. Client has gained awareness of healthy coping skills for managing and reducing depressive symptoms; however, continues to struggle with consistent application outside tx environment and often reports low motivation/apathy as barriers maintaining depressive sx. Client can identify triggers for depressive symptoms after experiencing a depressive episode, though continues to struggle with recognizing these proactively in order to apply coping skills to better manage sx . Objective 2- not complete and in progress. Client has not completed DSM-5 assessment at time of review, therefore progress on this goal unknown. Client has made progress in learning some of the specific distorted thoughts that reinforce depression, indicating ?existential thoughts? as primary trigger. Continues to struggle with challenging and managing these thoughts in the moment. Team Recommendations:: Recommendation is to continue working on current objectives, specifically addressing lack of modivation and apathy. Will continue focusing on identifying strategies for challenging negative thoughts. Additionally will focus on behavior activation skills. Problem #2 Problem Name:: Anxiety, Ruminations, Avoidance Status of Goals:: Not complete. Objective 1- partially complete. Client has learned numerous coping skills to better manage anxiety and prevent panic escalation. However, client continues to struggle with significant avoidance behaviors and often struggles with implementation of calming skills in the moment. Recent regression as client has canceled twice in the last week which may be indicative of increased avoidance tendencies. Objective 2- in progress. Client has gained awareness of physiological and psychological impacts of anxiety in group sessions. Discussed safety behaviors reinforcing anxiety in individual session, however continues to struggle with coping skill follow- through to manage anxiety sx. Team Recommendations:: Will continue IOP tx to address avoidance safety behaviors. WIll focus on small exposure therapy goals to reduce behaviors that reinforce depressive sx.
--- NOTE | 2020-05-21 09:00 | BH.SGPN.GN ---
Behaviors/Verbalizations/Mental Status: []Client alert and oriented, casually dressed. Eye contact poor. Motor activity appropriate. Speech within normal limits. Affect flat, mood dysthymic. Thoughts linear, logical, no signs of hallucinations or delusions. Reviewed client?s symptom tracker, no risk or thoughts of suicide ideation, plan, or intent as of 05/21/20. Client Response/Progress/Benefit: []Client responded well to session but was disengaged in group discussion as client appeared to be falling asleep at times. Client reported feeling ?overwhelmed? this morning and declined to share her personal check-in. When therapist asked client what goals client is currently working on, client stated ?I don?t know.? Progress limited as client has difficulty engaging with peers and generalizing what she learns in IOP into her daily life. Will continue IOP to prevent decompensation, promote the use of healthy coping skills, and improve daily functioning. Narrative Note: []
--- NOTE | 2020-05-21 10:07 | BH.SGPN.GN ---
Behaviors/Verbalizations/Mental Status: [] Client alert and oriented, casually dressed and groomed. Eye contact poor, avoidant. Motor activity appropriate. Speech within normal limits. Affect constricted, mood anxious and dysthymic. Thoughts linear, logical, no signs of hallucinations or delusions. Client Response/Progress/Benefit: [] Client appearing disengaged throughout, often looking away and appearing distracted by phone at various points. Client struggling to listen as the group worked to identify factors that contribute to how we define ourselves which included: society, what we?ve learned or been taught is expected, illness, family, and comparisons to others. Client progress continues to be impacted by difficulties in engaging in the group environment as ongoing avoidance appears to further reinforce social anxiety. Continues to be encouraged to challenge herself to provide input at least once in group; however, continues to struggle with doing so. Client to continue IOP tx to promote use of healthy coping skills, further improve anxiety management, and to improve daily functioning. Narrative Note: []
--- NOTE | 2020-05-21 15:17 | BH.MDN_ITS ---
Multi-Disciplinary Note - Note 60-min Individual Time Started:: 11:22 Date: 05/21/20 Purpose of session/treatment goals addressed:: The purpose of this session was to address client's current symptoms, application of coping skills, and review tx progress so far. Another goal was to discuss plan of care moving forward and ways to promote gains. Other topics included addressing engagement in group and maintaining healthy boundaries. Eye Contact:: Good Motor Activity:: Appropriate Appearance:: Casual Speech:: Appropriate Mood:: Anxious Affect:: Full Thoughts:: Linear, Logical, No evidence of hallucinations/delusions noted Staff Interventions:: Therapist used active listening and open-ended questions to explore client's current symptoms and stressors, as well as elicit client opinion on tx progress and application of coping skills. Therapist gave client the DSM-5 and reviewed progress with client. Therapist used GA techniques to explore client?s goals moving forward, identify ongoing areas of concern, and discuss continued plan of care. Therapist used strengths perspective to empower client on improved ability to identify distorted thoughts, begin setting boundaries, and areas of progress. Therapist provided psychoeducation on cycle of unhealthy relationships and strategies for maintaining healthy boundaries. Client Response:: Client responded well to session, open to meeting with therapist. Client reported that despite being sick over the past week, she has been doing ?better? and is feeling somewhat more positive. Went on to discuss that this is primarily the result of taking the step to set a boundary with her ex and cut off most of their communication. Noted this has been a difficult transition but ultimately, she feels it will help her with developing a better sense of independence and spend more time focusing on ?the relationship with myself?. Client noted she has been ?reflecting a lot? over the past two weeks and realized she has been pressuring herself to do things for other people and because she feels pressured to and not truly because she wants to. Further explained things she has felt pressured into include pursuing higher education when she does not actually enjoy it and remaining in contact with her ex. Noted spending time discussing with her mom the pros/cons of taking a year off from school next year and decided doing so would give her the opportunity to focus more on her mental health and improving her relationship with herself. Shared feeling this is significant progress in terms of client ability to advocate for herself. Discussed additional areas of progress with therapist and reviewed areas in which client continues to struggle. Shared that in the past week she has improved with reaching out to friends and engaging in activities she used to enjoy. Provided example of making plans to go rollerblading with a friend from high school tomorrow. Client identified wanting to further focus on maintaining healthy boundaries, communicating her needs, and learning more about herself to combat ongoing sx of apathy. Client and therapist reviewed DSM-5 scores and discussed barriers contributing to limited to no change in anxiety sx. Discussed impacts of continued avoidance in group setting on maintaining social anxiety. Reviewed with therapist strategies so continue improving with group engagement as well. Risks/Concerns:: Client denies any active suicidal ideations, plan, or intent as of 05/21/20. Reports reduced depressive sx and is future oriented. Progress Toward Goals/Plan:: Client overall response to treatment is variable. She reports reductions in both anxiety and depression; however, continues to struggle with significant avoidance which reinforces social anxiety. Client remains actively engaged in the individual therapeutic setting, though struggles to complete homework. Continues to struggle significantly with engagement in the group setting and reports willingness to continue to challenge herself to improve with this. Client reports improved self-esteem, use of thought challenging, and recent improvement in setting healthier boundaries. Would like to continue focusing on healthy boundaries and self-esteem. Client?s DSM-5 scores have decreased by 9% since admission, with a 33% reduction in irritability. Client continues to struggle with ruminations, apathy, self- advocacy, and disqualifying the positives. Client will continue IOP tx to promote use of healthy coping skills, improve daily functioning, and reduce depressive and anxious symptoms. Time Stopped:: 12:20
--- NOTE | 2020-05-24 09:06 | BH.SGPN.GN ---
Behaviors/Verbalizations/Mental Status: []Eye contact is fair, avoidant. Alert and oriented. Motor activity is appropriate. Appearance is casual. grooming is appropriate. Speech is Appropriate. Mood is anxious and dysthymic. Affect is congruent. Thoughts are linear and logical. No evidence of psychosis or hallucinations. Client Response/Progress/Benefit: []Pt engaged in session AEB listening to others and willingness to share thoughts and feelings with group. Pt did well to identify personal wins and noted she was feeling ?overwhelmed? on this date. Noting this is due to continuing to struggle with boundaries and not taking on other?s problems; however, expressed continued growth in this area. She went on to share current wins which included: continuing to encourage herself to maintain the boundaries she has been working on, advocating for her own needs by saying ?no?, and setting aside time for scheduled self-care. Discussed that she typically struggles in making self-care a priority and was proud of herself for setting aside time to read leisurely. Identified current skills used as: thought challenging, opposite action, positive self-talk, and deep breathing. Current stressor includes continuing to struggle with self-advocacy, but reports progress in this area. Recommended continued IOP tx to improve mental health sx management, continue to promote healthy boundaries, and prevent decompensation. Narrative Note: []
--- NOTE | 2020-05-24 10:15 | BH.SGPN.GN ---
Behaviors/Verbalizations/Mental Status: []Client alert and oriented, casually dressed and groomed. Eye contact fair. Motor activity appropriate. Speech within normal limits. Affect flat, mood dysthymic and anxious. Thoughts linear, logical, no signs of hallucinations or delusions. Client Response/Progress/Benefit: []Client responded well to session, appeared to actively listen to peers as client nodded head in agreement. Appeared to benefit from group as client connected with peers on how anxiety impacts physical symptoms, cognitive thinking, and safety behaviors. Client nodded her head in agreement of feeling tension in muscles as a physical symptom of anxiety. Client defined safety behaviors as ?something to make us feel better? and used a personal example of following a daily routine to feel comfort. Group learned that safety behaviors tend to reinforce anxiety. Client will continue IOP to promote the use of healthy coping skills, challenge negative thoughts, and reduce anxiety symptoms. Narrative Note: []
--- NOTE | 2020-05-24 11:15 | BH.SGPN.GN ---
Behaviors/Verbalizations/Mental Status: []Client alert and oriented, casually dressed and groomed. Eye contact fair. Motor activity appropriate. Speech within normal limits. Affect constricted, mood anxious. Thoughts linear, logical, no signs of hallucinations or delusions. Client Response/Progress/Benefit: []Client was a mostly passive participant in group discussion AEB providing limited input throughout. Client reported safety behaviors she engages in includes: don't check e-mail and repetitive behaviors. Attentive during psychoeducation on anxiety management skills. The group practiced belly breathing. Client identified wanting to practice body scan at least 3 times in the next week. Appeared to benefit from practicing in the moment coping skills and identifying personal mindfulness activities to manage anxiety independently. Client will continue IOP tx to improve daily functioning, improve decision making and prevent decompensation. Narrative Note: []
--- NOTE | 2020-05-28 10:00 | BH.SGPN.GN ---
Behaviors/Verbalizations/Mental Status: []Client alert and oriented, casually dressed and groomed. Eye contact fair, often avoidant. Motor activity appropriate. Speech within normal limits. Affect constricted, mood anxious. Thoughts linear, logical, no signs of hallucinations or delusions. Client Response/Progress/Benefit: [] Client was a mostly passive participant AEB struggling with contributing to discussion, but did well with taking notes and engaging in group activity. Continues to appear anxious which seems to impact willingness to fully engage or provide input at times. Client appeared to connect with the topic of pitfalls AEB nodding on various occasions throughout. She remained attentive as group discussed barriers that prevent from choosing a healthier path to mental wellness such as pitfalls. Group worked together to identify examples of personal pitfalls which included; resentment, anger, isolating, distortions, and unhealthy coping. Client identified overthinking and poor boundaries as personal pitfalls that have inhibited progress in the past. Engaged more during the activity when encouraged by group AEB taking direction from fellow participants, advocating for her own needs through providing direction, and giving feedback throughout. Client benefited from group as she learned to better identify potential barriers to improving mental health symptoms. Client will continue IOP tx to increase the consistent application of healthy coping skills, reduce mental health sx, and prevent decompensation. Narrative Note: []
--- NOTE | 2020-05-28 11:10 | BH.SGPN.GN ---
Behaviors/Verbalizations/Mental Status: []Client alert and oriented, neatly dressed, hygiene tended to. Eye contact fair. Motor activity appropriate. speech and tone WNL. Affect constricted, mood anxious. Thoughts linear, logical, no signs of hallucinations or delusions. Client Response/Progress/Benefit: []Client receptive of session, engaged throughout AEB client listening to discussion and taking notes. Client completed a worksheet where client identified personal pitfalls impacting mental health progress. Client?s pitfalls included: avoidance, all or nothing thinking, making assumptions, lack of boundaries, and self-criticism. Attentive and contributing during group brainstorm of strategies to overcome pitfalls. Client will work on overcoming her pitfall of avoidance by using opposite action and setting small goals. Benefited from identifying personal pitfalls and strategies to overcome these pitfalls. Progress noted today in progress group as client reports actively setting boundaries. Will continue IOP tx to promote use of healthy coping skills, reduce avoidance, and improve functioning. Narrative Note: []
== END 2020-05-30 23:59 ==
LOC: BHIOP 09:00
PROVIDERS: Referring Provider Psychiatry & Neurology Psychiatry; Visit Provider Psychiatry & Neurology Psychiatry
DX: F33.2 Major depressive disorder, recurrent severe without psychotic features (principal); F41.1 Generalized anxiety disorder; F42.9 Obsessive-compulsive disorder, unspecified; F84.0 Autistic disorder
CPT/HCPCS: H0035; 90834; 90837; 90853

== ENCOUNTER 2020-05-31 09:00 | Outpatient (RCR) | payer OTHER, SELFPAY ==
[2020-05-31 00:45] VITALS: BP 121/80; PULSE 75
--- NOTE | 2020-05-31 09:00 | BH.SGPN.GN ---
Behaviors/Verbalizations/Mental Status: []Eye contact is good. Alert and oriented. Motor activity is appropriate. Appearance is casual. grooming is appropriate. Speech is Appropriate. Mood is anxious and euthymic. Affect is congruent. Thoughts are linear and logical. No evidence of psychosis or hallucinations. Denies any SI, plan, or intent as of this date. Client Response/Progress/Benefit: [] Pt engaged in session AEB listening to others and willingness to share thoughts and feelings with group. Pt did well to identify personal wins and noted she was feeling ?optimistic? on this date. Identified current wins which included: asking her boss about a promotion despite being anxious about doing so and setting aside time to go shopping for herself for the first time in several years. Discussed this was a form of self-care and that she felt proud as a result. Identified current skills used as: thought challenging, opposite action, positive self-talk, and ongoing boundary setting. Client stated that her current stressor includes continuing to struggle with maintaining her boundaries now that she has set them. Expressed continuing to make progress in this area. Recommended ongoing IOP tx to improve mental health sx management, continue to promote healthy boundaries, and prevent decompensation. Narrative Note: []
--- NOTE | 2020-05-31 11:15 | BH.SGPN.GN ---
Behaviors/Verbalizations/Mental Status: []Client was alert and oriented, casually dressed and groomed. Eye contact fair. Motor activity appropriate. Speech within normal limits. Affect constricted, mood anxious and euthymic. Thoughts linear, logical, no evidence of hallucinations or delusions. Client Response/Progress/Benefit: []Client responded well to session AEB taking notes and contributing to discussion when prompted. Client attentive during psychoeducation on the change process and different emotions in each stage of change. Client also contributed during the activity. Client identified a change she would like to make to improve her mental health which was to eat on a regular schedule. Client reports this will help client feel less nauseous and give her more energy. Client reports belief she is in the preparation stage as she has created a plan, but she struggles with follow through and consistency. Client also identified her barriers and participated in a small group discussion to problem-solve solutions to barriers. Appeared to benefit from identifying what stage of change client is in and creating a small goal. Will continue IOP tx to promote the use of healthy coping skills and further improve functioning. Narrative Note: []
--- NOTE | 2020-05-31 12:33 | BH.MDN_ITS ---
Multi-Disciplinary Note - Note 45-min Individual Time Started:: 10:28 Date: 05/31/20 Purpose of session/treatment goals addressed:: The purpose of this session was to address treatment goal #1, obj#1 and Goal #2 Obj #2. Another goal was to discuss potential trauma and OCD specific counseling as options regarding aftercare planning. Eye Contact:: Good Motor Activity:: Appropriate Appearance:: Casual Speech:: Pressured Mood:: Euthymic, Anxious Affect:: Full, Congruent Thoughts:: Linear, Logical, No evidence of hallucinations/delusions noted Staff Interventions:: Therapist asked open ended and furthering questions to elicit information regarding client symptoms, stressors, and skill application promoting ongoing treatment goal progress. Used active listening and provided emotional support, commending client on goals accomplished over last week. Applied AR techniques to aid client in completing decisional balance exercise regarding current stressor. Therapist provided psychoeducation on intrusive thoughts and provided supplemental materials as an additional resource. Therapist aided client in identifying a small self-care goal for the day. Client Response:: Client receptive to meeting with therapist, engaged thro lilian. Client stated she has been feeling ?fairly positive? as a whole lately and attributes this to making progress with mental health goals. Discussed continued improvements in boundary setting with her ex and has refrained from seeing her in person for past two weeks. Shared she has been using thought challenging, weighing pros/cons, and self-reflection to do so. Reminds herself ?I didn?t like how I felt when I was in the relationship?. However, continues to struggle with answering ex?s calls/texts despite knowing it makes her feel bad. Receptive of discussing strategies for reducing loneliness in order to aid in taking the next step in boundary setting and prevent reverting back. Client discussed her younger brother asked to move in with client. Shared this may help provide more positive support and reduce loneliness but is still apprehensive to commit as she wants to ensure she will still have personal space and time for herself. Discussed pros/cons of decision and client expressed plans to sit down with her mother and brother to further review expectations before making her decision. Noted current area of stress as increased unwanted thoughts. Upon further exploration, Client described several unwanted intrusive thoughts such as ?did I remember to turn off the oven?. Noted varying degree of impact on daily functioning. Expressed connecting with psychoeducation provided on intrusive thoughts and shared desire to further explore this topic therapeutically. Provided with handout on intrusive thoughts to further review as homework. Client additionally identified struggling with self-care however upon further exploration identified several self-care activities she?s completed and isn?t giving self credit for. Identified small self-care goal to sit down and eat lunch before going into work for the evening. Risks/Concerns:: Client denies any SI, plan, or intent on this date, 05/31/20. Future oriented. Progress Toward Goals/Plan:: Progress noted. Client reports reduced depression and anxiety. Indicated she is actively applying skills learned in treatment and has reduced isolation and avoidance as a result. Identified several self-care activities recently completed and noted challenging herself to ?do the anxious thing? this week by asking for a promotion at work. Client continues to endorse anxiety, ruminating and intrusive thoughts, increased checking behaviors, negative self-talk, and some avoidance behaviors. Client to continue IOP tx to prevent decompensation, reduce anxiety sx, and increase consistent application of healthy coping skills. Time Stopped:: 11:12
--- NOTE | 2020-06-04 09:00 | BH.SGPN.GN ---
Behaviors/Verbalizations/Mental Status: []Client alert and oriented, casually dressed. Eye contact fair. Motor activity appropriate. Speech within normal limits. Affect flat, mood anxious. Thoughts linear, logical, no signs of hallucinations or delusions. Reviewed client?s symptom tracker, no risk or thoughts of suicide ideation, plan, or intent as of 06/04/20. Client Response/Progress/Benefit: []Client responded well to session, engaged throughout and participated in group discussion. Client reported feeling ?tired? this morning. Client reported working towards her goal of ?taking time for self? as client practiced self-care on Thursday by reading, resting, and watching television. Client shared she woke up anxious on Thursday morning but practiced opposite action, talked to her mother for support, and practiced self-care. Client spent time with her supports over the weekend. Progress noted as client reported using healthy coping skills but has difficulty reflecting back on the use of coping skills. Client will continue IOP to challenge negative thoughts, improve decision making, and increase self-esteem. Narrative Note: []
--- NOTE | 2020-06-04 10:10 | BH.SGPN.GN ---
Behaviors/Verbalizations/Mental Status: []Client alert and oriented, casually dressed and appropriately groomed. Eye contact fair. Motor activity appropriate. Speech within normal limits. Affect constricted, mood anxious. Thoughts linear, logical, no signs of hallucinations or delusions. Client Response/Progress/Benefit: []Pt engaged in session AEB pt listening attentively to group discussion and provided some input during session. Pt gave example that someone can be flexible by adjusting expectations instead of beating self up for not getting everything done. Pt connected with the topic of resilience and agreed with the group that it is possible to become more resilient. Discussed the positive and negative forces in life that impact a person?s resilience. Engaged in discussion about barriers to resiliency. Pt seemed to benefit from increasing awareness of factors that influence personal resilience and understand importance of improving resiliency. Pt to continue IOP to continue use of healthy coping, improve confidence and prevent decompensation.
--- NOTE | 2020-06-04 11:15 | BH.SGPN.GN ---
Behaviors/Verbalizations/Mental Status: []Client alert and oriented, casually dressed and groomed. Eye contact fair to good. Motor activity appropriate. Speech within normal limits. Affect congruent, mood euthymic and anxious. Thoughts linear, logical, no signs of hallucinations or delusions. Client Response/Progress/Benefit: [] Client responded well to session, engaged and participated throughout discussion. Client participated in the discussion of how each resiliency component can help increase personal resiliency. Client worked with group to identify ways to practice each of the resiliency traits reviewed in daily life. Client took an active participatory role within the activity and worked with group to identify strategies for improving group?s ability to reach identified goal. Provided personal input to small group discussion. Appeared to benefit from group as client discussed how resiliency impacts daily functioning. Identified wanting to work on improving personal resilience factor of ?maintain a hopeful outlook? by increasing personal awareness of negative thoughts disqualifying hopefulness and work to challenge and reframe these. Will continue IOP tx to improve the use of healthy coping skills, further reduce anxiety, and prevent decompensation. Narrative Note: []
--- NOTE | 2020-06-07 09:00 | BH.SGPN.GN ---
Behaviors/Verbalizations/Mental Status: []Client alert and oriented, casually dressed and groomed. Eye contact fair. Motor activity appropriate. Speech within normal limits. Affect constricted, mood euthymic. Thoughts linear, logical, no signs of hallucinations or delusions. Reviewed client?s symptom tracker, no risk for suicidal ideation, plan, or intent as of 06/07/20 Client Response/Progress/Benefit: []Client responded well to session, attentive and engaged. Client reports feeling tired but overall positive today. Client has been spending time with family and practicing self-care. Client got her hair colored and she has been practicing being comfortable alone. Client continues to work on setting boundaries which client reports is going well and a lot easier. Client's stressor today is that she is feeling increased anxiety without a specific trigger. Client reports she feels confident in her ability to manage this anxiety. Appeared to benefit from reflecting on application of coping skills. Progress noted in client's reduced avoidance behaviors and self-report of improved functioning. Will continue IOP tx to reinforce healthy coping skills, further reduce anxiety, and improve confidence. Narrative Note: []
--- NOTE | 2020-06-07 10:10 | BH.SGPN.GN ---
Behaviors/Verbalizations/Mental Status: []Client alert and oriented, casually dressed and groomed. Eye contact good. Motor activity WNL, Speech within normal limits. Affect constricted, mood anxious. Thoughts linear, logical, no signs of hallucinations or delusions. Client Response/Progress/Benefit: []Pt mostly passive participant AEB pt providing limited input during session but did appear to listen attentively to peers. Appeared to connect with peers comments about conflict AEB pt nodding head. Pt attentive during psychoeducation about different conflict styles (avoidant, accommodating, cooperative, and competing). Pt identified she most often is avoiding and accommodating when in conflict with others. Pt stated she is most often avoiding with internal conflict. Pt seemed to benefit from increased awareness of different conflict styles and impact can have on mental health. Pt to continue IOP to continue use of healthy coping, challenge distorted thoughts and prevent decompensation. Narrative Note: []
--- NOTE | 2020-06-07 11:20 | BH.SGPN.GN ---
Behaviors/Verbalizations/Mental Status: [] Client alert and oriented, casually dressed and groomed. Eye contact fair to good. Motor activity appropriate. Speech within normal limits. Affect congruent, mood anxious. Thoughts linear, logical, no signs of hallucinations or delusions. Client Response/Progress/Benefit: [] Client engaged in session AEB contributing input to discussion which is progress compared to prior sessions, taking notes throughout. Client did well to review current conflict style and it?s impact on mental health. Attentive and taking notes during discussion on strategies for more effectively managing conflict in own life. Client identified wanting to use more competing approaches to conflict externally as she often just agrees to avoid conflict with others. Shared plans to begin working on doing so by improving upon her ability to say no and set boundaries in the workplace. Appeared to benefit from learning strategies to better manage conflict and psychoeducation on CLUES approach to conflict. Will continue IOP tx to continue to improve self-confidence, reduce depressive and anxious symptoms, and improve daily functioning. Narrative Note: []
--- NOTE | 2020-06-08 08:19 | BH.MDN_ITS ---
Multi-Disciplinary Note - Note 45-min Individual Time Started:: 09:07 Date: 06/08/20 Purpose of session/treatment goals addressed:: The purpose of this session was to address treatment Goal #2 Obj #2. Eye Contact:: Good Motor Activity:: Appropriate, Restless - fidgetting at various times when becoming uncomfortable in addressing OCD/intrusive thought patterns Appearance:: Casual Speech:: Appropriate Mood:: Euthymic, Anxious Affect:: Full Thoughts:: Linear, Logical, No evidence of hallucinations/delusions noted Staff Interventions:: Therapist asked open ended and furthering questions to elicit information regarding client symptoms, stressors, and skill application promoting ongoing treatment goal progress. Used active listening and provided emotional support. Applied CBT interventions to aid client in identifying and reframing distorted thinking patterns, as well as review behavior chain analysis of impact of avoidance on daily living. Provided psychoeducation on fear ladder. Provided client with handout on Myths vs. Facts of intrusive thoughts and began reviewing. Client Response:: Client receptive to meeting with therapist, engaged throughout. Client stated she is continuing to do well with working on healthy boundaries in her relationships; however, is struggling to maintain boundaries professionally. 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 Client noted she is nervous as next month one of the other managers will be leaving and client will have to take on additional responsibilities. Client did well to identify distortions reinforcing avoidance behaviors. Recognized additional long-term consequences of continue avoidance as she will not be able to balance two jobs, increased work responsibility, and self-care. Client identified plans to text her boss about needing reduced hours this evening and plans to put her phone on mute after as she does not want to see his immediate response. Able to identify how texting and muting her phone could be examples of avoidant behaviors. Appeared to connect with psychoeducation provided on fear ladder, and client identified confronting her boss directly as outside her comfort zone at this time. However, was able to identify a small exposure goal of speaking with him directly about it after the initial confrontation. Reports reading the information on intrusive thoughts provided in prior session and noted connecting with several examples. Indicated plans to look more into pursuing ERP specific therapy following IOP discharge. Receptive of beginning review on common ?Myths vs. Facts? of intrusive thoughts. Risks/Concerns:: Client denies any SI, plan, or intent on this date, 06/08/20. Future oriented. Progress Toward Goals/Plan:: Progress noted. Client reports continued reduced depression and is spending more time engaging in self-care activities such as reading, seeing friends, and getting outdoors. Indicated she is continuing to actively apply skills learned in treatment. Some regression in use of healthy boundary setting as client reports difficulties advocating for needs in the wo rkplace. Noted increased anxiety as a result. Client continues to endorse anxiety, ruminating and intrusive thoughts, and some avoidance behaviors. Receptive of resources provided on local agencies specifically addressing OCD related sx. Reports wanting to consider this option more before following-up. Will continue to encourage. Client to continue IOP tx to prevent decompensation, reduce anxiety sx, and increase consistent application of healthy coping skills. Time Stopped:: 09:47
--- NOTE | 2020-06-14 09:04 | BH.SGPN.GN ---
Behaviors/Verbalizations/Mental Status: []Eye contact is fair to good. Alert and oriented. Motor activity is appropriate. Appearance is casual. grooming is appropriate. Speech is Appropriate. Mood is anxious and euthymic. Affect is congruent. Thoughts are linear and logical. No evidence of psychosis or hallucinations. Denies any SI, plan, or intent as of this date. Client Response/Progress/Benefit: []Pt engaged in session AEB listening to others and willingness to share thoughts and feelings with group. Pt noted feeling ?turbulent? on this date as she has been able to see her progress but still struggles with focusing on everything else she feels needs to be addressed. Did well however to help challenge herself to identify personal wins which included: working through her anxiety about getting COVID vaccine without escalating to panic, as well as setting aside time for self-care afterwards which has been a personal goal. Identified healthy skills used as: thought challenging, grounding skills, positive self-talk, and reaching out to supports. Noted current stressor is continued anxiety though is making strides in this area. Recommended ongoing IOP tx to improve coping skills and communication, and prevent decompensation. Narrative Note: []
--- NOTE | 2020-06-14 09:18 | BH.MDN_ITS ---
Multi-Disciplinary Note - Note 45-min Individual Time Started:: 10:13 Date: 06/14/20 Purpose of session/treatment goals addressed:: The purpose of this session was to address treatment Goal #1 obj #1 and Goal #2 Obj #1. Eye Contact:: Good Motor Activity:: Appropriate Appearance:: Casual Speech:: Appropriate Mood:: Euthymic, Anxious Affect:: Full Thoughts:: Linear, Logical, No evidence of hallucinations/delusions noted Staff Interventions:: Therapist asked open ended and furthering questions to elicit information regarding client symptoms, stressors, and skill application promoting ongoing treatment goal progress. Used active listening and provided emotional support. Commended client on areas of progress in addressing anxiety. Applied CBT interventions to aid client in identifying warning signs for anxiety and resulting avoidance behaviors. Client Response:: Client receptive to meeting with therapist, positive mood and engaged throughout. Client stated she has been able to see substantial progress in her ability to better manage anxiety symptoms and prevent engaging in avoidance behaviors. Proudly discussed an instance earlier this week in which she used healthy coping skills to face her fears rather than avoid. Described plans to receive the [employer] vaccine only to discover it had been temporarily stopped the morning of her appointment. Client shared increased anxiety in discovering this and initially wanting to cancel her appointment; however, was able to challenge these thoughts and follow through with receiving the alternative vaccine offered. Client shared feeling increased anxiety follow ing the shot and recognizing physical warning signs for panic. Client noted she did well to use calming skills as well as reach out to her mother for support and successfully prevented from escalating to point of panic. Reported feeling proud of this progress but has some increased worry about maintaining gains post discharge. Discussed continued struggles with avoidance related to advocating for herself in the workplace. Additionally, noted feeling overwhelmed by ?everything I still feel like I need to work on?. Client did well to work with therapist to combat use of distortions and discuss a plan for discharge next week. Client and therapist reviewed common warning signs and triggers she should be aware of for anxiety, as well as discussed interventions client has found to be effective. Reports thought challenging, healthy distractions, exercise, spending time outdoors, listening to Bonnie Ratliff, and reaching out to supports as skills she can continue to use. Reports plans to complete IOP Aftercare Program. Reports she is still unsure of whether she would like to return to current outpatient counselor as she is primarily telehealth at this time. Risks/Concerns:: Client denies any SI, plan, or intent on this date, 06/14/20. Future oriented. Progress Toward Goals/Plan:: Progress noted. Client reports continued reduction in depression and is seeing consistent progress in ability to manage overall anxiety. Reports improved ability to challenge intrusive thoughts and distortions, as well as identify warning signs prior to panic escalation. Client noted improved enjoyment in daily activities. Continues to struggle at times with avoidance behaviors and communicating her needs with others. Client has continued to improve in healthy boundary setting. Plan is to continue IOP tx as client establishes aftercare appointments in order to maintain gains, continue to promote healthy change behaviors, and provide ongoing support. Time Stopped:: 10:55
--- NOTE | 2020-06-18 09:00 | BH.SGPN.GN ---
Behaviors/Verbalizations/Mental Status: []Client alert and oriented, casually dressed. Eye contact fair. Motor activity appropriate. Speech within normal limits. Affect congruent, mood euthymic. Thoughts linear, logical, no signs of hallucinations or delusions. Reviewed client?s symptom tracker, no risk or thoughts of suicide ideation, plan, or intent as of 06/18/20. Client Response/Progress/Benefit: []Client responded well to session, engaged throughout and participated in group discussion. Client reported feeling ?relaxed? this morning. Client reported a positive check-in and said she is ?scared for change? as to discharging from IOP later in the week. Client reported feeling ?good for the first time since age of 14 and feels anxious about no longer feeling constant anxiety.? 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 Progress noted as client stated she continues to work on her goal of maintaining healthy boundaries rather than avoiding. Client will continue IOP to continue the use of healthy coping skills, maintain healthy boundaries, and decrease avoiding behaviors. Narrative Note: []
--- NOTE | 2020-06-18 10:10 | BH.SGPN.GN ---
Behaviors/Verbalizations/Mental Status: []Client alert and oriented, casual dress, hygiene tended to. Eye contact good. Motor activity appropriate. Speech within normal limits. Affect congruent, mood euthymic. Thoughts linear, logical, no signs of hallucinations or delusions. Client Response/Progress/Benefit: []Engaged participant AEB pt providing input throughout session and listening attentively to others. Engaged during psychoeducation portion reviewing fixed mindset. Pt worked with group to identify how a fixed mindset can impact our mental health which included: keeping people stuck, ?destroying? relationships, giving up, and negative self-talk. Able to identify personal examples of fixed thoughts which included ?I can?t succeed at school? and ?I?m not going to get better.? Client shared now that she is in a better place mentally, she no longer believes these fixed thoughts. Seemed to benefit from group by increasing awareness of how one's mindset impacts mental health. Pt will continue IOP tx this week to reinforce healthy coping skills and will discharge on . Narrative Note: []
--- NOTE | 2020-06-18 11:16 | BH.SGPN.GN ---
Behaviors/Verbalizations/Mental Status: []Client alert and oriented, casually dressed and groomed. Eye contact fair to good, often looking down. Motor activity appropriate. Speech within normal limits, quiet. Affect congruent. mood anxious and euthymic. Thoughts linear, logical, no signs of hallucinations or delusions. Client Response/Progress/Benefit: []Client actively engaged during discussion AEB providing input when prompted and taking notes throughout. Client did well to remain attentive as group worked on identifying characteristics and benefits of adopting a growth mindset. Continues to remain a mostly passive participant. Attentive as participants helped reframe example fixed thoughts into growth mindset thoughts. Nodding as others discussed struggling with fixed thoughts often in the past. Client worked to apply skills learned to reframe own personal fixed thoughts. Reframed thought of ?I?m not going to get better? with growth mindset thought of ?I am improving all the time and even if things aren?t perfect that doesn?t mean they?re not getting better?. Noted that this would aid in improving self-care, increase motivation and hopefulness, as well as increase willingness to ask for help. Benefitted from discussing benefits of growth mindset and brainstorming strategies for prompting growth-mindset. Will continue IOP tx to continue to promote active thought challenging and skill application, as well as improve healthy coping repertoire. Narrative Note: []
--- NOTE | 2020-06-19 09:00 | BH.SGPN.GN ---
Behaviors/Verbalizations/Mental Status: [] Client alert and oriented, neatly dressed and groomed. Eye contact good. Motor activity appropriate. Speech within normal limits. Affect congruent, mood euthymic. Thoughts linear, logical, no signs of hallucinations or delusions. Reviewed client?s symptom tracker, no risk for suicidal ideation, plan, or intent as of 06/19/20 Client Response/Progress/Benefit: []Client responded well to session, attentive and engaged throughout. Client reports feeling optimistic this morning as client shared she feels equipped to handle her daily stressors. One of client's stressors is school and all the choices she needs to make, but client recognizes she can get through this. Client report using self-care, self-compassion, and thought challenging. Client recently saw her ex-girlfriend which at first caused negative self-talk, but client then reminded herself this is why I set the boundary. Appeared to benefit from focusing on the progress she has made. Will discharge on , but can benefit from one more IOP day to reinforce healthy coping skills. Narrative Note: []
--- NOTE | 2020-06-19 10:10 | BH.SGPN.GN ---
Behaviors/Verbalizations/Mental Status: [] Eye contact is good. Motor activity is appropriate. Appearance is casual. Speech is Appropriate. Mood is depressed. Affect is flat. Thoughts are linear and logical. No evidence of psychosis. Client Response/Progress/Benefit: [] Pt participated at times during group discussion. Active participant in group activity. Attentive as peers provided insight on the benefits to goal-setting as well as the barriers to setting and obtaining goals. Attentive during psychoeducation on SMART (Specific, Measurable, Achievable, Realistic, Timely)goals. Did well in activity with peers and was able to relate the activity to goal setting for herself. Benefited from increase insight into effective ways to set goals. Will continue in IOP to maintain gains and prevent decompensation. Narrative Note: []
--- NOTE | 2020-06-19 11:08 | BH.SGPN.GN ---
Behaviors/Verbalizations/Mental Status: []Eye contact is fair to good. Alert and oriented. Motor activity is appropriate. Appearance is casual. grooming is appropriate. Speech is Appropriate, limited input provided. Mood is anxious, euthymic. Affect congruent. Thoughts are linear and logical. No evidence of psychosis or hallucinations. Client Response/Progress/Benefit: []Client was engaged during discussion, did well to complete activity and process with the group. Providing increased input which is progress for client. Client was willing to complete the SMART goal worksheet. Client identified her personal SMART goal as: ?Recognize my own accomplishments more by identifying at least 2 positive things I?ve done every day for a week?. Client stated this will benefit her by reducing negative self-talk, improving mood and self-esteem, as well as increase overall sense of hope. Client identified her barriers which included: not being able to identify any personal positives, forgetting, and not making time to do it. Client did well to identify potential solutions for these barriers and willing to begin working on this goal as homework. Benefited from this group by developing a short-term SMART goal related to mental health. Will continue IOP tx to increase healthy coping skills, continue to challenge distorted thoughts, and prevent decompensation. Narrative Note: []
--- NOTE | 2020-06-21 09:00 | BH.SGPN.GN ---
Behaviors/Verbalizations/Mental Status: [] Eye contact is good. Motor activity is appropriate. Appearance is neat. Speech is Appropriate. Mood is euthymic. Affect is full. Thoughts are linear and logical. No evidence of psychosis. Reviewed daily check in sheet and no reports of suicidal ideations or intent. Client Response/Progress/Benefit: [] Pt participated when prompted. Attentive during video short on empathy vs sympathy. Shared with the group that today is her last day in IOP. Feels as if she has progressed while in the program. Was doing well with setting boundaries with unhealthy person however admits that she didn't uphold that boundary this past week. Insight into triggers that led to reaching out to unhealty person. States I spent time with her and could only think about how much I don't want to spend time with her. Mental health wins reported as setting goals which is challenging for her. Shared with the group the content that resonated most with her during IOP. Progress noted. Will be discharged from [facility] today. Narrative Note: []
--- NOTE | 2020-06-21 10:10 | BH.SGPN.GN ---
Behaviors/Verbalizations/Mental Status: []Eye contact is good. Alert and oriented. Motor activity is appropriate. Appearance is casual. grooming is appropriate. Speech is Appropriate. Mood is euthymic. Affect is congruent. Thoughts are linear and logical. No evidence of psychosis or hallucinations. Client Response/Progress/Benefit: []Client responded well to session, engaged during group discussion and activity. Client shared her barrier to manage emotions is the difficulty to identify the emotion. The group identified the importance of communication and the effect communication has on managing emotions as it prevents suppressing emotions, losing control, and gaining support from others. During activity client played the role of a ?bumper? to help peers accomplish the goal. Appeared to benefit from group as client gained awareness of managing emotions the impact it plays into daily functioning. Client no longer meets criteria for IOP and will discharge today. Narrative Note: []
--- NOTE | 2020-06-21 11:10 | BH.SGPN.GN ---
Behaviors/Verbalizations/Mental Status: []Client alert and oriented, neatly dressed and groomed. Eye contact good. Motor activity appropriate. Speech within normal limits. Affect constricted, mood euthymic. Thoughts linear, logical, no signs of hallucinations or delusions. Client Response/Progress/Benefit: []Client engaged in session AEB client providing limited input during discussion and completed worksheet. Attentively listening during psychoeducation on 4 zones of regulation and able to identify feelings and behaviors for each zone. Worked with group to identify coping skills one can use to support self in each zone. Client reported belief she is in the green/yellow zones today as client is ?starting to get agitated, but able to shut it down.? Client reports she can work on creating a new routine and thought challenge today to regulate her emotions. Benefited from increased education on zones of regulation or stages of alertness for emotions and healthy coping skills to use for each zone. Will discharge from IOP tx today as client has made significant progress and no longer meets criteria for IOP level of care. Narrative Note: []
--- NOTE | 2020-06-22 11:40 | BH.MDN ---
Multi-Disciplinary Note - Note 45-min Individual Time Started:: 09:01 Date: 06/22/20 Purpose of session/treatment goals addressed:: The purpose of this session was to review client's progress and strategies that will continue to promote mood stability and maintain gains made in IOP. Another goal was to discuss discharge recommendations and process any current stressors. Eye Contact:: Good Motor Activity:: Appropriate Appearance:: Casual Speech:: Appropriate Mood:: Euthymic, Anxious Affect:: Full Thoughts:: Linear, Logical, No evidence of hallucinations/delusions noted Staff Interventions:: Therapist used open-ended questions to explore client's thoughts on personal progress. Therapist also provided emotional support and helped client problem-solve current stressors. Therapist reviewed supports and coping skills with client to promote gains and prevent setbacks. Therapist discussed aftercare plan with client and used strengths-perspective to empower client on the goals client has accomplished. Therapist discussed the benefits of ongoing maintenance and use of daily coping skills. Therapist provided an aftercare plan for closure. Client Response:: Client responded well to session, open to meeting with therapist. Client shared she felt positive but a little anxious about completing the IOP program. Shared that she has been able to see significant progress and improvement in her mood since beginning IOP tx. Reflected upon specific areas of progress which included improved boundary setting an self-advocacy, improved use of self-care, and increased ability to manage anxiety. Client reflected increased sense of confidence in her own decisions as well. Went on to discuss anxiety about discharge related to struggling to maintain gains in the past and is therefor worried about her ability to do so now. Receptive discussion reviewing potential warning signs/triggers for increased depression and anxiety, as well as able to identify strategies to maintain gains and prevent reverting to old unhealthy avoidance cycles. Client identified these skills to be self-care, connecting with supports, opposite action, positive self-talk, maintaining healthy boundaries, ?doing the anxious thing?, and self-reflection. Client will begin the aftercare program and continue receiving outpatient counseling on a weekly basis and discharge from [facility] today. Risks/Concerns:: Client denies any suicidal ideations, plan, or intent as of 06/22/20. Future oriented and motivated. Progress Toward Goals/Plan:: Client has made significant progress since starting IOP and will discharge today. Client reports progress in reduced depression and anxiety, reduced isolation, improved boundary setting, reaching out to healthy support and better communication, and increased motivation. Client will follow up with her outpatient provider, Ana Pollock, at [facility] for ongoing counseling services and begin the [facility] AfterCare program next week. Time Stopped:: 09:45
--- NOTE | 2020-06-22 11:43 | BH.DS ---
Discharge Summary - Demographics Date of Admission:: 04/19/20 Discharge Date: 06/22/20 Presenting Problems at Admission:: Patient is a 20-year-old female with a history of depression, anxiety, OCD and mild autism spectrum disorder who is referred by self to the [facility] behavioral health IOP program due to worsening symptoms of depression, anxiety and passive suicidal ideation for the past month. Client reports she has been unable to function at work or at home due to her worsening symptoms and almost quit her job as a result. At time of admission, Client endorsing difficulties leaving the house, apathy, anhedonia, limited motivation, interrupted sleep, decreased appetite, passive SI w/o plan or intent, feelings of worthlessness and hopelessness, poor decision making, rumination, decreased concentration, and crying spells. Current sx are impacting social, occupational, and educational areas. Reports she sometimes finds it hard to leave the house but is able to come to the IOP program. Limited supports but reports her for primary support she has her mom and friend some friends. Discharge Diagnoses:: Major depressive disorder, recurrent, severe without psychosis; generalized anxiety disorder; obsessive-compulsive disorder history; mild autism spectrum disorder Reason for Discharge:: Client has made significant progress AEB reduced DSM-5 scores and accomplishment of tx goals and no longer meets criteria for IOP level of care. - Treatment Progress During Treatment & Response: Client responded mostly well to treatment and accomplished her treatment goals AEB reduction in DSM-5 scores and self-report of improved functioning. When client was at group, she was an active member and receptive to learning new skills. Client did well to increase active engagement and provide more input in group setting throughout the past few weeks of tx. Client reported using healthy coping skills including reading, roller skating, thought challenging, opposite action, affirmations, healthy boundary setting, goal setting, ?doing the anxious thing?, and reaching out to support. Client reported generalization of coping skills and often reported using opposite action which helped client reduce urges to engage in avoidance behaviors as well as follow-through with maintaining healthy boundaries. Client was engaged in her individual sessions and was consistent with homework and skill utilization outside of group. Client also self-reported progress in being more capable of making decisions and reduced second-guessing or reassurance seeking, and increased self-awareness. Client?s DSM-5 scores decreased by an overall 31%. Depression decreased by 57%, anxiety decreased by 22%, and not knowing who she is/not feeling connected to others decreased by 50%. Issues Still to be Addressed:: Client can benefit from ongoing counseling to reinforce healthy coping skills, continue to improve self-esteem and self-care/balance, maintain healthy boundary setting, and challenge negative thinking that reinforces avoidance. Client will also benefit from continuing to practice self-reflection, reducing social anxiety, and considering ERP specific counseling to address OCD related sx. Client's main goals moving forward are to reduce anxiety and figuring out plan for college/schooling in the future. Discharge Recommendations/Instructions:: Client is encouraged to continue outpatient counseling at [facility]. Client sees Ana Pollock on a weekly basis. Client continues to decline wanting any outpatient psychiatry. Client will begin the [facility] Aftercare program next week. Discharge Handout: Complete Discharge Handout with client on aftercare options and continuity of care.
== END 2020-06-22 02:00 | disposition home or self-care (01) ==
LOC: BHIOP 09:00
PROVIDERS: Referring Provider Psychiatry & Neurology Psychiatry; Visit Provider Psychiatry & Neurology Psychiatry
DX: F33.2 Major depressive disorder, recurrent severe without psychotic features (principal); F41.1 Generalized anxiety disorder; F42.9 Obsessive-compulsive disorder, unspecified; F84.0 Autistic disorder
CPT/HCPCS: H0035; 90834; 90853

== ENCOUNTER 2020-07-05 14:00 | Outpatient (RCR) | payer OTHER, SELFPAY ==
--- NOTE | 2020-07-05 14:00 | BH.SGPN.GN ---
Behaviors/Verbalizations/Mental Status: []Client alert and oriented, casually dressed and groomed. Eye contact fair. Motor activity appropriate. Speech within normal limits. Affect constricted. Mood anxious. Thoughts linear, logical, no signs of hallucinations or delusions. Client Response/Progress/Benefit: []Client responded well to session AEB client sharing thoughts and feelings and listening attentively to peers. Client stated she has had a rough week with increased anxiety at night that is waking her up. Client shared having a panic attack in the middle of night is something new for her which is disrupting her sleep routine. Client stated she also had difficulty managing an obsessive thought that she left a burner on at work so had to drive to work at 3am to confirm she turned it off. Client reported logically she knew she had done the task but wouldn't be able to sleep until she checked. Client recognizes that she could be struggling more due to recently graduating from [employer] so doesn't have structure/routine that she had before. Client contributed to the discussion on gratitude and its benefits. Client attentive during discussion of internal vs. external gratitude. Client created weekly plan on what she will identify for gratitude over the next 7 days. Appeared to benefit from connecting with peers and creating plan to identify gratitude. Client reporting decompensation since discharge from [employer] with panic attacks at night and OCD symptoms. Will continue IOP aftercare to continue use of healthy coping skills, decrease anxious symptoms and prevent further decompensation.
--- NOTE | 2020-07-05 15:17 | BH.MTP ---
Master Treatment Plan - Patient Information Program Physician:: Dr. Elsy Byrnes Primary Therapist:: Nichelle RENE - Psychiatric Diagnoses Psychiatric Diagnoses:: Major depressive disorder, recurrent, severe without psychosis; generalized anxiety disorder; obsessive-compulsive disorder history; mild autism spectrum disorder Diagnosis Code(s):: F 33.2 - Estimated LOS Estimated LOS (in weeks):: 10 Problem/Goal #1 - Problem/Goal #1 Stated Goal:: client will maintain or see a reduction in symptoms AEB client score on the DSM 5 cross-cutting measure and improve client's daily functioning. - Objectives Objective #1 Stated Objective: Client will continue to consistently apply healthy coping skills to maintain progress made in IOP tx. Interventions: Through group therapy, client will review warning signs and triggers as well as healthy coping skills learned in IOP tx to successfully maintain gains while transitioning into outpatient therapy Discharge Criteria: Client will have accomplished this goal when client's score on the DSM-5 cross-cutting measure has either maintained or reduced over a 10 week period. Target Date: 09/13/20 Review Date: 08/02/20 Status: open Objective #2 Stated Objective: Client will learn and utilize 2-3 maintenance strategies to prevent decompensation. Interventions: Through group therapy, client will be provided with education on healthy maintenance behaviors, relapse prevention techniques, and healthy coping strategies. Discharge Criteria: Client will have accomplished this goal when can report using at least 2 maintenance skills to prevent decompensation. Target Date: 09/13/20 Review Date: 08/02/20 Status: open
--- NOTE | 2020-07-12 14:00 | BH.SGPN.GN ---
Behaviors/Verbalizations/Mental Status: []Client alert and oriented, casually dressed and groomed. Eye contact good. Motor activity appropriate. Speech within normal limits. Affect congruent, mood euthymic. Thoughts linear and logical. No signs of hallucinations or delusions. Client Response/Progress/Benefit: []Client responded well to session, checked in using her GAPs worksheet. Client reported feeling ?optimistic? as she recently quit her job at [employer] and ?finally stood up for myself.? Identified healthy coping skills she has been using such as positive self-talk and reaching out to supports. Client engaged well during discussion of social support and noted benefits of different types of social support. Client appeared to benefit from psychoeducation on the four types of social support. Client was engaged as client contributed to how one may build social support. Identified a goal for the week which was to increase her emotional support by connecting with a new therapist. Will continue aftercare IOP to challenge negative thoughts and continue the use of healthy coping skills. Narrative Note: []
--- NOTE | 2020-07-19 14:00 | BH.SGPN.GN ---
Behaviors/Verbalizations/Mental Status: []Client alert and oriented, casual dress, hygiene tended to. Eye contact fair. Motor activity appropriate. Speech within normal limits. Affect congruent, mood euthymic. Thoughts linear, logical, no signs of hallucinations or delusions. Client Response/Progress/Benefit: []Pt reported she has been going to various interviews for a new job and now has four new job offers. Pt stated she has accepted one of the offers and will be looking to accept one more offer. Pt reported she struggles with saying no but recognizes needs to let the potential employers what she wants to do. Pt identifies additional positive as starting therapy with a new outpatient therapist. Identified current stressor as still having panic like symptoms in the evening. Pt engaged in brainstorming of various daily routine ideas. Pt completed task of identifying activities to complete either on a daily or weekly basis for her routine. Patient identify routine items to include: check school email, clean out car once a week, reach out to friends and do an outdoor activity. Pt seemed to benefit from support from peers and learning about benefits of routine. Pt to continue aftercare group to maintain gains, decrease anxious symptoms and prevent decompensation. Narrative Note: []
--- NOTE | 2020-07-26 14:00 | BH.SGPN.GN ---
Behaviors/Verbalizations/Mental Status: []Client alert and oriented, casually dressed and groomed. Eye contact good. Motor activity appropriate. Speech within normal limits. Affect congruent, mood euthymic. Thoughts linear, logical, no signs of hallucinations or delusions. Client Response/Progress/Benefit: []Pt receptive of session, engaged throughout. Pt noted she was feeling happy this afternoon and expressed this is actually uncomfortable because she has been conditioned to expect ?the other shoe to drop. Attributes improved to taking steps towards improving her ability to cope with nighttime anxiety, removing herself from toxic environments, and spending more time with healthy supports. Receptive of discussion on personal accountability and its importance in maintaining mental health stability. Pt worked cooperatively with group to identify benefits of maintaining personal accountability. Engaged in discussion on different accountability styles and brainstorming strategies for improving ability to hold themselves accountable. Pt identified that for homework she will practice using visual accountability resources via keeping a daily accomplishment log to recognize where she is making progress and hold herself accountable to identifying positives. Pt seemed to benefit from support from peers and increasing understanding of personal accountability benefits and strategies. Progress noted in client?s report of improved mood stability and use of healthy calming skills. Will continue IOP aftercare group. Narrative Note: []
--- NOTE | 2020-07-26 16:10 | BH.MTP_ITS ---
Treatment Plan Review Date of Admission:: 06/28/20 Date of Treatment Plan Review:: 07/26/20 Admitting Diagnoses:: Major depressive disorder, recurrent, severe without psychosis; generalized anxiety disorder; obsessive-compulsive disorder history; mild autism spectrum disorder Current Diagnoses:: Major depressive disorder, recurrent, severe without psychosis; generalized anxiety disorder; obsessive-compulsive disorder history; mild autism spectrum disorder Patient's Response to Treatment:: Client is engaged in IOP aftercare as evidenced by client's participation in group discussions and self-report of consistently applying coping skills such as grounding, establishing and maintaining boundaries, doing the ?anxious thing?, and thought challenging. Client's overall DSM-5 scores have decreased since admission to aftercare by 20%. Client's DSM-5 scores for depression have maintained since admission and are within the mild range for severity. Client's DSM-5 scores for anxiety have decreased since admission to IOP aftercare by 14%. Scores for unexplained aches and pains has reduced by 100%. Client has been consistent with attendance and provides good feedback in sessions. Status of Current Problems and Symptoms: Client has been experiencing anxiety related to employment as client has been interviewing for several new jobs due to not enjoying her current one. Client found out that she got a job elsewhere w [employer] is both exciting and somewhat stressful for client as she then had to quit her current job. Client also reports still experiencing panic attacks at night though on a less frequent basis, as well as ruminations, and occasional negative self-talk that reinforces anxiety and depression. Problem #1 Problem Name:: Pt. will maintain or see a reduction in sx AEB client score on the DSM-5 Status of Goals:: Objective 1- complete with ongoing work encouraged. Client?s scores on the DSM-5 for depression have maintained since discharge. Client?s anxiety scores have decreased by 14% since admission to aftercare. Overall, client?s DSM-5 scores have decreased by 20%. Objective 2- complete with ongoing work encouraged. Client has been consistently reporting use of mindfulness with deep breathing, spending time with family, challenging reassurance seeking urges, and thought challenging. Team Recommendations:: Recommended client continue IOP aftercare group in addition to attending regular outpatient counseling in order to reduce DSM-5 symptoms and promote consistent use of healthy coping skills.
== END 2020-07-30 23:59 ==
LOC: BHOG 14:00
PROVIDERS: Referring Provider Psychiatry & Neurology Psychiatry; Visit Provider Psychiatry & Neurology Psychiatry
DX: F33.2 Major depressive disorder, recurrent severe without psychotic features (principal); F41.1 Generalized anxiety disorder; F42.9 Obsessive-compulsive disorder, unspecified; F84.0 Autistic disorder
CPT/HCPCS: 90853

== ENCOUNTER 2020-08-02 09:00 | Outpatient (RCR) | payer OTHER, SELFPAY ==
--- NOTE | 2020-08-02 14:00 | BH.SGPN.GN ---
Behaviors/Verbalizations/Mental Status: []Client alert and oriented, casually dressed, hygiene tended to. Eye contact good. Motor activity appropriate. Speech within normal limits. Affect congruent, mood euthymic. Thoughts linear, logical, no signs of hallucinations or delusions. Client Response/Progress/Benefit: []Client responded well to session, attentive and engaged throughout. Reported feeling ?davies? today as she has been feeling lonely at night lately. Discussed several skills she is using to help cope with this and did well to note current positives which included adjusting her sleep schedule to reduce nighttime negative thinking, beginning a new job, and seeing friends regularly. Expressed anxiety about ?slipping back? but did well to challenge this. Client contributed to discussion on healthy decision making. Aided in identifying personal barriers and strategies to improve healthy decisions, giving input when prompted. Client reported she would like to work on improving her ability to give herself credit for personal progress. Noted she could do so by finding ways to reward her use of healthy decisions. Appeared to benefit from reflecting on application of coping skills, identifying barriers, and creating a game plan to improve healthy decision-making skills. Will continue [facility] aftercare to continue the use of healthy coping skills and maintain stability. Narrative Note: []
--- NOTE | 2020-08-16 14:00 | BH.SGPN.GN ---
Behaviors/Verbalizations/Mental Status: []Client alert and oriented, casually dressed. Eye contact poor. Motor activity appropriate. Speech within normal limits. Affect flat, mood depressed. Thoughts linear, logical, no signs of hallucinations or delusions. Client Response/Progress/Benefit: []Pt passive participant AEB pt not providing input throughout session, however at times did appear to listen attentively to others. Pt more disengaged compared to previous sessions. Pt reported stated she has not been doing well. Identified her emotion as overwhelmed. Pt did not want to elaborate about current struggles. Pt seemed to listen at times to discussion about self-love. Pt listened as group identified strategies to increase self-love. Pt seemed to benefit from reviewing treatment progress and stressors as well as learning about how to increase self-love. Pt to continue aftercare program to increase consistent use of healthy coping, decrease anxiety and prevent further decompensation.
--- NOTE | 2020-08-23 08:18 | BH.DS ---
Discharge Summary - Demographics Date of Admission:: 07/05/20 Discharge Date: 08/23/20 Presenting Problems at Admission:: Pt completed IOP program from 04/19/19-06/23/19. At admission to aftercare program, pt continued to endorse anxious and depressed symptoms of mild to moderate intensity. Pt was still experiencing some difficulty verbalizing her emotions, setting boundaries, managing situational anxiety, and challenging thoughts as well. Discharge Diagnoses:: Major depressive disorder, recurrent, severe without psychosis; generalized anxiety disorder; obsessive-compulsive disorder history; mild autism spectrum disorder Reason for Discharge:: Pt has demonstrated ability to maintain some gains made in IOP aftercare; however, has seen an influx in OCD type symptoms. Client is discharging from the aftercare program to seek more intensive therapy for her OCD. - Treatment Progress During Treatment & Response: Pt was actively engaged in aftercare group AEB pt's consistent attendance, contributions in group and honest self-reflection. Pt was honest about her symptoms, stressors, and admitting to not following through with coping skills which often contributed to a relapse in mental health symptoms. Pt experienced a regression in symptoms around treatment plan review which were triggered partially by several changes in her occupational and familial stressors. Client reports increased intrusive thinking and urges to engage in ritualistic behaviors. Pt was able to recognize this regression and seek out additional, more intensive, symptoms specific counseling. Because of client?s resilience, self-reflection, and application of coping skills, client?s DSM-5 scores decreased from admission to discharge. Pt?s DSM-5 scores increased by 20% from admission to discharge, specifically a 57% influx in anxiety which again reinforces need for more insive tx. Issues Still to be Addressed:: Pt can benefit from ongoing outpatient counseling and medication management to improve anxiety management and reinforce healthy coping skills. Pt can continue to work on assertive communication, thought challenging, boundary setting, and self-advocacy. Lastly, pt continues to struggle with OCD specific sx and would benefit from individualized counseling in this area. Discharge Recommendations/Instructions:: Pt is recommended to continue outpatient counseling and medication management at [facility]. Discharge Handout: Complete Discharge Handout with client on aftercare options and continuity of care.
--- NOTE | 2020-08-23 14:00 | BH.SGPN.GN ---
Behaviors/Verbalizations/Mental Status: []Client alert and oriented, disheveled appearance. Eye contact good. Motor activity appropriate. Speech within normal limits. Affect flat, mood dysthymic and irritable. Thoughts linear, logical, no signs of hallucinations or delusions. Client Response/Progress/Benefit: []Client was disengaged during session and reported ?I wasn?t doing well last week and it hasn?t gotten better.? Client did not identify any mental health wins, but it is positive that she attended group rather than isolating. Receptive of discussion on self-talk and its influence in maintaining long-term mental health stability. Contributed to strategies for improving effective creation and application of believable personal affirmations. Client created several affirmations and shared one with the group. Client plans to put ?I have worth and value as an individual? in her car. Client has reported lack of coping skill application over the past two weeks which could lead to further decompensation. Will continue to monitor client?s mood and symptoms to see if client needs higher level of care. Narrative Note: []
== END 2020-08-29 23:59 ==
LOC: BHOG 09:00
PROVIDERS: Referring Provider Psychiatry & Neurology Psychiatry; Visit Provider Psychiatry & Neurology Psychiatry
DX: F33.2 Major depressive disorder, recurrent severe without psychotic features (principal); F41.1 Generalized anxiety disorder; F42.9 Obsessive-compulsive disorder, unspecified; F84.0 Autistic disorder
CPT/HCPCS: 90853

== ENCOUNTER 2021-09-23 09:00 | Outpatient (RCR) | payer BC, SELFPAY ==
--- NOTE | 2021-09-23 09:05 | BH.SGPN.GN ---
Behaviors/Verbalizations/Mental Status: [] Eye contact is poor. Motor activity is appropriate. Appearance is casual. Speech is Appropriate. Mood is depressed. Affect is flat. Thoughts are linear and logical. No evidence of psychosis. Reviewed daily check in sheet and no reports of suicidal ideations or intent. Client Response/Progress/Benefit: [] Pt participated when prompted. Attentive. Pt shared that today was her first day in IOP. Her goals for IOP are to learn more coping skills for depression, anxiety, and anger. I need to keep my head above water due in large part to increased stressors in her life which is making managing her emotions very difficult. I did this program in the past and it was helpful. Group provided feedback and advice for her first day and week in the program which was helpful. Benefited from group support, encouragement, and feedback. Will continue in IOP to maintain safety, increase healthy coping, and to prevent decompensation. Narrative Note: []
--- NOTE | 2021-09-23 10:10 | BH.SGPN.GN ---
Behaviors/Verbalizations/Mental Status: []Pt alert and oriented, casually dressed and groomed. Eye contact fair. Motor activity restless. Speech within normal limits. Affect constricted, mood anxious. Thoughts linear, logical, no signs of hallucinations or delusions. Client Response/Progress/Benefit: []Pt connected with topic of Anxiety and participated throughout, providing input and taking notes. Attentive during psychoeducation on different anxiety disorders and participated throughout interactive discussion defining anxiety and identifying safety behaviors and physiological symptoms of anxiety. Pt?s safety behaviors included reassurance seeking, avoidance, and checking behaviors. Physiological symptoms reported by patient included: muscle tension, nausea, and sensory sensitivity. Benefited from increased awareness and insight on anxiety and its impact. Pt will continue IOP tx to prevent decompensation, improve ability to manage symptoms, and improve daily functioning. Narrative Note: []
--- NOTE | 2021-09-23 11:10 | BH.SGPN.GN ---
Behaviors/Verbalizations/Mental Status: []Pt alert and oriented, casually dressed and groomed. Eye contact fair. Motor activity restless. Speech within normal limits. Affect constricted, mood anxious. Thoughts linear, logical, no signs of hallucinations or delusions. Client Response/Progress/Benefit: []Pt an active participant AEB providing input to discussion and sharing examples throughout. Reviewed how anxiety impacts thinking. Pt identified personal anxious thoughts such as catastrophizing, black and white thinking, and what ifs. Attentive during psychoeducation on mindfulness coping skills and their impact on mental health wellness. The group worked together to brainstorm anxiety reduction strategies. Pt reported they will practice positive self-talk to manage anxiety and improve self-confidence. Pt seemed to benefit from increased repertoire of anxiety reduction skills. Pt will continue IOP tx to reduce intensity of symptoms, challenge distorted thoughts, and improve overall functioning. Narrative Note: []
--- NOTE | 2021-09-24 09:00 | BH.SGPN.GN ---
Behaviors/Verbalizations/Mental Status: [] Client alert and oriented, casually dressed and groomed. Eye contact avoidant. Motor activity appropriate. Speech within normal limits. Affect constricted, mood anxious and depressed. Thoughts linear, logical, no signs of hallucinations or delusions. Reviewed client?s symptom tracker, no risk for suicidal ideation, plan, or intent as of 09/24/21 Client Response/Progress/Benefit: [] Client's second day in IOP and is adjusting to group environment. Client responded well to group by attentively listening and sharing with group. Reported that their emotion of the day was overwhelmed. Client shared mental health win of getting to enjoy themselves yesterday at work and were able to be in the moment instead of forcing themselves to try to look happy. Client also shared how that has been a stressor too with always feeling like they need to fake it and has a desire to be happy without pretending to be. Client seemed to benefit from feedback from group member and validation on current feelings. They will continue IOP tx to increase coping skills, reduced irritability, and increase overall functioning. Narrative Note: []
--- NOTE | 2021-09-24 10:05 | BH.SGPN.GN ---
Behaviors/Verbalizations/Mental Status: [] Eye contact is good. Motor activity is appropriate. Appearance is casual and grooming tended to. Speech is Appropriate. Mood is anxious. Affect is constricted. Thoughts are linear and logical. No evidence of psychosis Client Response/Progress/Benefit: [] Client receptive of session, actively engaged throughout AEB taking notes and providing input and examples to discussion. Appeared to connect with group topic of cognitive distortions and the impact of thought patterns on mental health, coping behaviors, and relationships. Reflected on instance where they have had a partner utilize jumping to conclusions on them and discussed the negatives they felt from it. Client appeared to benefit from gaining insight on distorted thinking patterns and how this impacts overall mental health. Client making progress in a group environment. Will continue IOP tx to further improve mood stability, reduce anxiety and avoidance, and increase self-confidence. Narrative Note: []
--- NOTE | 2021-09-24 11:10 | BH.SGPN.GN ---
Behaviors/Verbalizations/Mental Status: [] Eye contact is good. Motor activity is appropriate. Appearance is casual and grooming tended to. Speech is Appropriate. Mood is anxious. Affect is constricted. Thoughts are linear and logical. No evidence of psychosis Client Response/Progress/Benefit: [] Client second day in IOP tx and still adjusting to group environment; however, responded well to session AEB input and examples during group activity. Group discussed and practiced methods of reframing cognitive distortions. Client participated in identifying cognitive distortions when examples were provided. Client discussed in group the different strategies to overcome the distortions by practicing reframing. Client identified cognitive distortion that they used most often was overgeneralization and that they use a lot of absolutes. Client made plan to identify and challenge thoughts that contribute to it as homework over the next couple of days. Will continue tx to further promote mood stability, improve distress tolerance skill application, maintain safety, and prevent decompensation. Narrative Note: []
--- NOTE | 2021-09-24 14:32 | BH.MDN ---
Multi-Disciplinary Note - Note 30-min Individual Time Started:: 12:10 Date: 09/24/21 Purpose of session/treatment goals addressed:: To gather information on pt's current stressors, symptoms, triggers, and tx goals. Another goal was to build rapport and provide emotional support. Eye Contact:: Fair Motor Activity:: Restless Appearance:: Casual Speech:: Appropriate Mood:: Euthymic, Anxious Affect:: Congruent Thoughts:: Linear, Logical, No evidence of hallucinations/delusions noted Staff Interventions:: thought challenging, rapport building, strengths perspective, treatment planning, goal setting Client Response:: Pt responded well to session, open to meeting with therapist. Pt reports they have been doing better in some ways since the last time they were in IOP tx. 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 Pt has a girlfriend and this relationships is going okay. Pt shared feeling like their mental health and thought process makes maintaining relationships hard. Pt reports they have been avoiding acknowledging things about themselves, but they want to finally address these. Pt feels like these things are impacting her relationships. Pt shared gender issues are one of pt's biggest stressors and it is making me miserable. Pt also reports feeling angry more than normal which pt feels could be triggered by stress. Pt is connected with outpatient services, but pt will not be seeing their outpatient therapist while in IOP. Pt given homework to read about attachment styles. Risks/Concerns:: Pt denies any active suicidal ideations, plan, or intent as of 09/24/21. Pt admits to chronic SI that is passive. No HI. Progress Toward Goals/Plan:: Pt's second day of IOP tx and pt reports it is going well. Pt completed IOP tx in the past and found it helpful. Pt currently endorses anxiety, depression, and gender issues that make me miserable. Pt stated her relationships struggle and pt often feels like they have to fake being happy. Pt reports anger which appears to be triggered by any little thing. Pt still able to work, but pt has been struggling mentally. Pt will continue IOP tx to prevent decompensation, improve mood stability, and gain self-love. Time Stopped:: 12:27
--- NOTE | 2021-09-24 14:33 | BH.MTP ---
Master Treatment Plan - Patient Information Program Physician:: Dr. Elsy Byrnes Primary Therapist:: Maria C RENE - Psychiatric Diagnoses Psychiatric Diagnoses:: Major depressive disorder, recurrent, severe without psychosis F33.2; Generalized anxiety disorder; OCD; Autism spectrum disorder Diagnosis Code(s):: F 33.2 - Estimated LOS Estimated LOS (in weeks):: 6 Problem/Goal #1 - Problem/Goal #1 Stated Goal:: Pt will decrease depressive symptoms, hopelessness, worthlessness, negative self-talk, and suicidal ideations. Description of Barriers: Pt reports a their relationship with their mother is confusing which reinforces negative thinking and sometimes keeps pt from reaching out for support. Pt reports experiencing gender identity issues and pt is trying to figure out what gender looks like for them. Pt reports relationship stress, avoidance behaviors, and unhealthy coping skills that could be barriers. Functional Impact: Pt is a 21-year-old non-binary individual with a history of MDD, NICHOLAS, and OCD. Pt was referred to IOP by their family due to recent decompensation in symptoms and suicidal ideations. Pt completed IOP last year in April. At admission, pt reported I have been going downhill for awhile. At admission, pt endorses low motivation, low energy, hopelessness, worthlessness, crying spells, ruminations, and increased irritability. No active SI, but admits to having daily fleeting SI with thoughts of methods. Pt reports symptoms are impacting their ability to function in college and causing breakdown moments. Goal Relevant Strengths/Supports: Pt completed IOP in the past and reported it was beneficial. Pt has outpatient counseling and psychiatry. 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 - Objectives Objective #1 Stated Objective: Pt will learn and utilize 2-3 healthy coping strategies to better manage depressive symptoms and reduce isolation as shown by a decrease of DMS-5 symptoms for depression. Interventions: Through group and individual sessions, therapist will help pt identify triggers and warning signs of depression and guilt including emotional, physical, and behavioral changes. Therapist will teach pt various coping skills to manage symptoms and give pt tangible resources to use to regulate emotions. Therapist will use cognitive restructuring techniques and help pt gain awareness of negative thoughts that reinforce guilt and depression. Therapist will provide psychoeducation on maintenance cycles and help pt learn ways to break unhealthy maintenance cycles. Therapist will help pt incorporate behavioral activation and assist pt in setting SMART goals. Discharge Criteria: Pt will have met this goal when can report learning and using at least 2 coping skills to manage depressive symptoms and reduce isolation. Additionally, pt will have met this goal when pt's DSM-5 scores for depression decrease. Target Date: 11/04/21 Review Date: 10/14/21 Status: open Objective #2 Stated Objective: Pt will identify at least 2-3 negative self-talk messages used to reinforce self-hate, worthlessness, and isolation and replace thoughts with balanced, realistic messages. Interventions: Therapist will help pt identify distorted, negative beliefs about self and replace with more realistic, affirmative messages. Therapist will use CBT and DBT to help pt increase insight to the connection between thoughts, emotions, and behaviors. Therapist will encourage pt to practice thought challenging. Discharge Criteria: Pt will have achieved this goal when can verbalize at least 2 cognitive distortions and effectively replace those thoughts with affirmative messages. Target Date: 11/04/21 Review Date: 10/14/21 Status: open Problem/Goal #2 - Problem/Goal #2 Stated Goal:: Pt will reduce anxiety, avoidance, and rumination while increasing ability to function on daily basis Description of Barriers: Pt reports a their relationship with their mother is confusing which reinforces negative thinking and sometimes keeps pt from reaching out for support. Pt reports experiencing gender identity issues and pt is trying to figure out what gender looks like for them. Pt reports relationship stress, avoidance behaviors, and unhealthy coping skills that could be barriers. Functional Impact: Pt is a 21-year-old non-binary individual with a history of MDD, NICHOLAS, and OCD. Pt was referred to [facility] by their family due to recent decompensation in symptoms and suicidal ideations. Pt completed IOP last year in April. At admission, pt reported I have been going downhill for awhile. At admission, pt endorses low motivation, low energy, hopelessness, worthlessness, crying spells, ruminations, and increased irritability. No active SI, but admits to having daily fleeting SI with thoughts of methods. Pt reports symptoms are impacting their ability to function in college and causing breakdown moments. Goal Relevant Strengths/Supports: Pt completed IOP in the past and reported it was beneficial. Pt has outpatient counseling and psychiatry. 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 - Objectives Objective #1 Stated Objective: Pt will identify 2-3 anxiety triggers and 2 coping skills to use when feeling anxious to manage anxiety as shown by decreasing DSM-5 scores for anxiety and avoidance. Interventions: Pt will provide education on anxiety, avoidance behaviors, and maintenance cycles. Therapist will help pt explore personal symptoms and warning signs of anxiety. Therapist will teach pt coping skills to improve emotional regulation, mindfulness, and distress tolerance to help pt cope with anxiety in the moment and reduce avoidance. Discharge Criteria: Pt will have accomplished this goal when can identify at least 2 triggers and report using 2 coping skills to manage anxiety. Additionally, pt will have accomplished this goal when DSM-5 scores show a reduction in symptoms. Target Date: 11/04/21 Review Date: 10/14/21 Status: open Objective #2 Stated Objective: Pt will reduce avoidance behaviors that reinforce anxiety by setting 1-2 small exposure goals a week to increase confidence, increase mastery, and reduce anxiety over time. Interventions: Through group and individual sessions, pt will learn about the benefits of setting exposure goals to overcome anxiety-producing situations. Therapist will help pt set SMART goals and challenge barriers. Therapist will use cognitive restructuring techniques and help pt gain awareness of negative thoughts that reinforce avoidance behaviors and fear of judgement. Therapist will help pt incorporate mindfulness, opposite action, and self-talk strategies to manage anxiety. Discharge Criteria: Pt will have accomplished this goal when can report accomplishing at least one small exposure goal a week. Additionally, pt will be able to report decreased avoidance behaviors. Target Date: 11/04/21 Review Date: 10/14/21 Status: open
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
--- NOTE | 2021-09-25 09:23 | BH.COMM ---
Communication Note - Communication with Client Communication Note: No call/ no show for today. Was scheduled for initial psych evaluation with psychiatrist today. Attempted to call however VM is full.
--- NOTE | 2021-09-26 09:05 | BH.SGPN.GN ---
Behaviors/Verbalizations/Mental Status: [] Eye contact is fair. Motor activity is appropriate. Appearance is casual. Speech is Appropriate. Mood is anxious. Affect is constricted. Thoughts are linear and logical. No evidence of psychosis. Reviewed daily check in sheet and reports a 2/5, with 5 being severe for suicidal thoughts and a 0/5 for suicidal intent. Client does not appear to be imminent risk to harm self or others. future focused. Client Response/Progress/Benefit: []Client responded well to session AEB client listening attentively to others, sharing thoughts and feelings and providing feedback to educational video group watched. Client stated yesterday they felt like junk in the morning so made decision to take off work. Client reported beat self up for the majority of the morning about not going to work but tried to challenge the thoughts. 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 Client stated additional positive as going to skate park and making self skate even when anxious brain was telling them to leave. Stated stressors are school starting up soon, conflicts with others, and feeling extremely tired most days. Appeared to benefit from peer support. Client to continue IOP to increase use of healthy coping skills, increase confidence and prevent decompensation.
--- NOTE | 2021-09-26 10:15 | BH.SGPN.GN ---
Behaviors/Verbalizations/Mental Status: [] Eye contact is good. Motor activity is appropriate, however noted to rock rapidly at times. Appearance is casual. Speech is Appropriate. Mood is anxious. Affect is congruent. Thoughts are linear and logical. No evidence of psychosis Client Response/Progress/Benefit: [] Pt was an active participant in group discussions. Attentive during psychoeducation. Participated in small groups with peers. Group worked together to define self-care which resulted in an interactive discussion on the topic. Pt states its restoring ourselves to full capacity. Group also worked together to identify the benefits to self-care which included; increased self-worth, decreased depression/anxiety/stress/anger, increased resilience, increased motivation, improved relationships, and prevention of crisis/burnout. Group also identified common myths associated with self-care such as; others come first, I have to push through everything, I'm not worthy of it, I don't deserve it, it takes too much time, I should be doing something more productive, its too expensive, and it's just personal hygiene. Group then into small groups and began to challenge or bust these myths. Benefited from increased awareness of self-care, it's benefits, and also practice challenging myths/obstacles to utilizing self-care. Will continue in IOP to maintain safety, increase healthy coping, and prevent decompensation. Narrative Note: []
--- NOTE | 2021-09-26 11:15 | BH.SGPN.GN ---
Behaviors/Verbalizations/Mental Status: []Pt alert and oriented, casually dressed and groomed. Eye contact fair. Motor activity restless-rocking head and taping feet. Speech within normal limits. Affect congruent, mood anxious. Thoughts linear, logical, no signs of hallucinations or delusions. Client Response/Progress/Benefit: []Pt engaged participant AEB completing self-assessment worksheet and contributing input during discussion. Participated throughout group discussion on the various areas of self-care. Pt completed worksheet which identified current self-care practices and what self-care activities pt wants to start using. Pt selected financial self-care to begin practicing more consistently. Pt plans to do this by tracking their purchases and growing their savings. Appeared to benefit from completing the self-care evaluation and gaining insights into current self-care practices, as well as identifying areas in which she would like to improve upon. Will continue IOP tx to reduce negative thinking, increase self-love, and reduce depressive symptoms. Narrative Note: []
--- NOTE | 2021-10-02 09:20 | BH.COMM ---
Communication Note - Communication with Client Communication Note: no call/ no show for IOP today. She was scheduled to meet with psychiatrist this AM. This is 2nd week in a row she did not show on scheduled day with psychiatrist. Attempted to call to discuss however VM is full.
== END 2021-09-29 23:59 ==
LOC: BHIOP 09:00
PROVIDERS: Referring Provider Psychiatry & Neurology Psychiatry; Visit Provider Psychiatry & Neurology Psychiatry
DX: F33.2 Major depressive disorder, recurrent severe without psychotic features (principal); F41.1 Generalized anxiety disorder; F42.9 Obsessive-compulsive disorder, unspecified; F84.0 Autistic disorder; Z79.899 Other long term (current) drug therapy
CPT/HCPCS: S9480; 90832; 90853

== ENCOUNTER 2021-09-30 07:39 | Outpatient (RCR) | payer BC, SELFPAY ==
--- NOTE | 2021-09-30 09:05 | BH.SGPN.GN ---
Behaviors/Verbalizations/Mental Status: []Pt alert and oriented, casually dressed and groomed. Eye contact good. Motor activity appropriate. Speech within normal limits. Affect congruent, mood anxious and content. Thoughts linear, logical, no signs of hallucinations or delusions. Reviewed pt?s symptom tracker, no risk for suicidal ideation, plan, or intent as of 09/30/21 Client Response/Progress/Benefit: []Pt responded well to session, attentive and engaged. Pt reports feeling overwhelmed and content today as pt shared there is a lot of change going on in their life, but they feel less stressed about it than they did last week. Pt identified several mental health wins this morning including allowing myself to exist this weekend by doing things they enjoy without getting in my own way. Pt also came to IOP this morning even though they wanted to cancel, but pt reminded self that they want to commit to the program. Pt appeared to benefit from connecting with peers and reflecting on use of coping skills. Pt will continue IOP tx to reduce anxious thoughts, increase self-love, and combat distortions. Narrative Note: []
--- NOTE | 2021-09-30 10:05 | BH.SGPN.GN ---
Behaviors/Verbalizations/Mental Status: [ ] Client alert and oriented, neatly dressed and groomed. Eye contact good. Motor activity appropriate. Speech within normal limits. Affect constricted, mood euthymic. Thoughts linear, logical, no signs of hallucinations or delusions Client Response/Progress/Benefit: [] Client getting more comfortable in group setting AEB providing input throughout group. Attentive during psychoeducation on 4 types of conflict styles (Competing, Collaborating, Avoiding, and Accommodating). Worked with group to define conflict and identify how conflict is helpful. With peers identified barriers to addressing or managing conflict which included: fear of upsetting others, fear of the outcome, and lack of confidence. Client believes they use accommodating and competing styles the most with discussing that when needs are not met repeatedly, they will end up switching style to competing. Appeared to benefit from group due to increase insight and awareness of benefits to conflict, conflict styles, and obstacles to managing conflict. Will continue in IOP to increase overall functioning, prevent decompensation, and increase coping utilization. Narrative Note: []
--- NOTE | 2021-09-30 11:07 | BH.SGPN.GN ---
Behaviors/Verbalizations/Mental Status: [] Client alert and oriented, neatly dressed and groomed. Eye contact good. Motor activity appropriate. Speech within normal limits. Affect congruent, mood euthymic. Thoughts linear, logical, no signs of hallucinations or delusions. Client Response/Progress/Benefit: [] Client engaged in session AEB contributing to discussion and engaging in activity. Client did well to review current conflict style and its impact on mental health. Attentive during discussion on strategies for more effectively managing conflict in personal life. Client participated in activity and did well to be assertive and collaborating. Client given handout on fair fighting rules. Client shared they plan on asking themselves why they are upset first before engaging in conflict. Appeared to benefit from gaining strategies to help client better manage conflict. Will continue IOP tx to reduce negative thinking patterns, prevent decompensation, and utilize positive coping skills. Narrative Note: []
--- NOTE | 2021-10-01 10:10 | BH.SGPN.GN ---
Behaviors/Verbalizations/Mental Status: []Client alert and oriented, casually dressed and groomed. Eye contact fair. Motor activity appropriate. Speech within normal limits. Affect constricuted, mood anxious. Thoughts linear, logical, no signs of hallucinations or delusions. Client Response/Progress/Benefit: []Client was a semi-engaged participant AEB contributing to discussion at times, appeared to listen to others, and participated in activity. Connected with the topic of pitfalls and listened to group discussion on barriers that prevent from choosing a healthier path to mental wellness. Group worked together to identify examples of personal pitfalls which included; resentment/anger, stigma, shutting down, low motivation, making excuses, denial, distortions, and unhealthy coping. Client identified black/white thinking, not advocating for self, and not setting boundaries as personal pitfalls that have inhibited progress in the past. Client benefited from group as she learned to better identify potential barriers to improving mental health symptoms. Client will continue IOP tx to increase healthy coping skills, improve confidence and prevent decompensation.
--- NOTE | 2021-10-01 11:15 | BH.SGPN.GN ---
Behaviors/Verbalizations/Mental Status: []Pt alert and oriented, casually dressed and groomed. Eye contact fair. Motor activity appropriate. Speech within normal limits. Affect flat, mood anxious and depressed. Thoughts linear, logical, no signs of hallucinations or delusions Client Response/Progress/Benefit: []Pt receptive of session, engaged throughout AEB pt actively listening and contributing to discussion, as well as taking notes.? Pt participated in the experiential activity and was quiet for most of it, but when gently challenged, pt did communicate needs. Pt and group processed how the emotions and perspective of the group impacted the activity. Group worked together to identify different coping skills to help manage pitfalls. Pt identified pitfalls they struggle with and shared wanting to work breaking down their stressors to challenge pt's all or nothing thinking. Benefited from identifying personal pitfalls and strategies to overcome these pitfalls. Will continue IOP tx to reduce self-hate and depressive symptoms, reduce negative thinking, and improve mood stability. Narrative Note: []
--- NOTE | 2021-10-01 14:22 | BH.PSA ---
Suicide Assessment Treatment Plan Recommendations
--- NOTE | 2021-10-01 14:22 | BH.PSA_ITS ---
Suicide Assessment Treatment Plan Recommendations
--- NOTE | 2021-10-01 15:33 | BH.MDN_ITS ---
Multi-Disciplinary Note - Note 45-min Individual Time Started:: 12:15 Date: 10/01/21 Purpose of session/treatment goals addressed:: To address current stressors, barriers, triggers, and relationships. Eye Contact:: Poor Motor Activity:: Restless Appearance:: Casual Speech:: Soft Mood:: Anxious Affect:: Congruent Thoughts:: Linear, Logical, No evidence of hallucinations/delusions noted Staff Interventions:: thought challenging, motivational interviewing, CBT techniques, rapport building, strengths perspective, goal setting Client Response:: Pt responded well to session, open to meeting with therapist. Pt shared they avoided last week due to anxiety and depression. Pt able to joke about it today, but overall pt continues to struggle with facing stressors. Pt shared connecting to the attachment style reading given last session and pt could see how their relationship with caregivers impacted attachment. Pt also feels like their girlfriend is anxiously attached which impacts pt's mental health and makes pt want to withdraw. 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 Pt gave examples of not being decisive or stating their needs to supports. Discussed goals for this such as telling their partner two times this week where they should eat. 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 Pt expressed wishing they were a boy since childhood, but there's too many consequences as pt's family is not always supportive. However, internally, pt reports a lot of self-hatred. Pt encouraged to process what they want their gender expression and roles to look like for homework. Risks/Concerns:: Pt denies any active SI, plan, or intent a of 10/01/21. Pt is future oriented. Progress Toward Goals/Plan:: Progress limited as pt just started IOP tx last week. Pt's attendance has been mostly consistent, however, pt missed seeing the psychiatrist last week due to no call no show. Pt understands the importance of showing tomorrow. Pt continues to endorse depressive symptoms, anxiety with avoidance and ruminations, low self-esteem, and gender dysphoria per pt's report. Pt connected to the attachment style reading given by therapist last session. Pt will continue IOP tx to prevent decompensation, reduce avoidance, and gain self-compassion. Time Stopped:: 13:05
--- NOTE | 2021-10-02 10:37 | BH.COMM ---
Communication Note - Communication with Client Communication Note: Pt has missed scheduled psychiatry days for two weeks now. Pt's anxiety and depression are contributing to pt's inconsistent attendance and this could be a barrier to further IOP tx. However, discharging pt from IOP due to lack of attendance on psychiatry days would likely result in further decompensation of symptoms and functioning and increase passive SI. Discussed concerns and plan of care with treatment tx. For these reasons, pt will stay in IOP tx and therapist will discuss the attendance policy again with pt.
--- NOTE | 2021-10-08 09:00 | BH.SGPN.GN ---
Behaviors/Verbalizations/Mental Status: []Pt alert and oriented, casually dressed and groomed. Eye contact good. Motor activity appropriate. Speech within normal limits. Affect constricted, mood dysthymic and anxious. Thoughts linear, logical, no signs of hallucinations or delusions. Reviewed pt?s symptom tracker, no risk for suicidal ideation, plan, or intent as of 10/08/21 Client Response/Progress/Benefit: []Pt responded well to session, receptive to feedback. Pt reports feeling overwhelmed and tired this morning as pt continues to struggle with managing all the changes and stressors in their life. Pt admits that they have been avoiding IOP and shared when they are overwhelmed the first thing I do is avoid. Group helped pt acknowledge credit that pt showed up for group today when pt could have avoided. Pt stated they started a new job and like it which has been a good reminder that not all change is bad. Pt appeared to benefit from processing avoidance and giving self credit. Pt will continue IOP tx to prevent decompensation, reduce avoidance, and improve daily functioning. Narrative Note: []
--- NOTE | 2021-10-08 11:05 | BH.SGPN.GN ---
Behaviors/Verbalizations/Mental Status: [] Client alert and oriented, neatly dressed and groomed. Eye contact fair to good. Motor activity appropriate. Speech within normal limits. Affect constricted, mood euthymic and anxious. Thoughts linear, logical, no signs of hallucinations or delusions. Client Response/Progress/Benefit: [] Client responded well to session AEB taking notes and providing input and examples throughout. Group discussed the different categories of coping skills which included distraction, emotional release, grounding, self-love, and thought challenging. Client created a coping skill menu identifying various skills to try in each category. Client chose to work on increasing healthy emotional release by exercising. Appeared to benefit from increasing repertoire of healthy coping skills. Client will continue IOP tx to improve daily functioning, minimizing symptoms of anxiety, and increase application of healthy coping skills. Narrative Note: []
--- NOTE | 2021-10-08 11:27 | BH.MDN ---
Multi-Disciplinary Note - Note 30-min Individual Time Started:: 10:30 Date: 10/08/21 Purpose of session/treatment goals addressed:: To address attendance issues and other barriers impacting pt's mental health. Another goal was to set a goal for medication. Eye Contact:: Poor Motor Activity:: Restless Appearance:: Casual Speech:: Rambling Mood:: Anxious Affect:: Constricted Thoughts:: Circular, No evidence of hallucinations/delusions noted Staff Interventions:: thought challenging, motivational interviewing, CBT techniques, rapport building, strengths perspective, goal setting Client Response:: Pt responded well to session, open to meeting with therapist. Pt admits that they have been avoiding IOP due to anxiety, especially when pt needs to see psychiatry. Pt shared having a long-standing history of fear of physicians. Processed this with therapist and challenged anxious thoughts pt has about seeing the psychiatrist. Also discussed the consequences of not seeing psychiatry which include potential discharge and ongoing anxiety due to avoidance. Discussed ways IOP staff could help reduce anxiety for pt tomorrow and a plan was created. Pt agrees to get a chart today after IOP to help pt keep track of taking medication. Pt responded well to motivational interviewing. Risks/Concerns:: Pt denies any active suicidal ideations, plan, or intent as of 10/08/21. Pt reports being inconsistent with taking their medications which could impact progress in mood stability. Progress Toward Goals/Plan:: Pt is making mild progress as pt has been inconsistent with attendance and admits it is due to avoiding. Pt recognizes that avoidance causes more mental distress, but short-term it reduces anxiety which is why pt does this. Pt reports feeling emotions so intensely that it makes it hard to cope in different ways. Pt does have good insight, but struggles to challenge and change behaviors. Pt will continue IOP tx to prevent decompensation, reduce avoidance, and improve overall functioning. Time Stopped:: 11:00
--- NOTE | 2021-10-09 09:00 | BH.SGPN.GN ---
Behaviors/Verbalizations/Mental Status: []Pt alert and oriented, casually dressed and appropriately groomed. Eye contact fair. Motor activity restless. Speech WNL. Affect congruent, mood euthymic. Thoughts linear, logical, no signs of hallucinations or delusions. Reviewed pt?s symptom tracker, no risk for suicidal ideation, plan, or intent. Client Response/Progress/Benefit: []Client respond well to session as evidenced by listening attentively to others and sharing thoughts and feelings. Client reported mental health positive as showing up to IOP today especially on a day in which she has to see the psychiatrist. Client stated she has been avoiding coming on the day she is to see the doctor because meeting with doctors is extremely anxiety provoking. 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 Client said additional positive as going out to eat and having improved mood the last couple days. Client stated she is feeling apprehensive and dread because she is worried something bad is going to happen. Client to continue IOP to increase consistent use of healthy coping skills, challenge negative thought patterns, and prevent decompensation.
--- NOTE | 2021-10-09 10:08 | BH.SGPN.GN ---
Behaviors/Verbalizations/Mental Status: []Pt alert and oriented, casually dressed and groomed. Eye contact good. Motor activity appropriate. Speech within normal limits. Affect constricted, mood anxious. Thoughts linear, logical, no signs of hallucinations or delusions Client Response/Progress/Benefit: []Pt responded well to session AEB listening to peers and sharing when prompted.?Pt listened throughout group discussion defining fixed mindset and what it can look like. Group discussed how fixed mindset affects mental health and why we use fixed thoughts. Pt participated in experiential activity encouraging pts to find solutions to a seemingly impossible task. Pt identified personal fixed thoughts in session which included ?things always end up going downhill for me even if I?m doing better.? Pt gained awareness that these thoughts reinforce depression and often lead to pt isolating or self-sabotaging.?Pt appeared to benefit from increased knowledge of fixed mindset and self-awareness of personal fixed thoughts. Will continue IOP tx to reduce avoidance, increase self-compassion, and reduce distorted thinking patterns.? Narrative Note: []
--- NOTE | 2021-10-09 11:10 | BH.SGPN.GN ---
Behaviors/Verbalizations/Mental Status: [] Eye contact is poor. Motor activity is appropriate. Appearance is casual. Speech is Appropriate. Mood is anxious. Affect is congruent. Thoughts are linear and logical. No evidence of psychosis. Client Response/Progress/Benefit: [] Pt was an active participant in group discussion. Participated in their small group and was attentive during group psychoeducation on growth mindset vs fixed mindset. Pt and peers identified and shared examples of growth mindset which included; things can change, situations can improve, feedback whether positive or negative can be helpful, etc. Pt participated in interactive discussion and practiced changing a fixed mindset thought to a growth mindset thought. Benefited from increased awareness and insight of growth mindset and strategies to change from fixed mindset thoughts to growth mindset thoughts. Plan to continue in IOP to prevent decompensation, increase healthy coping strategies, and maintain safety. Narrative Note: []
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
--- NOTE | 2021-10-09 12:36 | BH.DR.ITP ---
Initial Treatment Plan Patient Information Visit Information: ADMISSION DATE: EXPECTED LOS: 4-6 weeks Problems/Symptoms Problem #1:: Depression Symptom:: Sadness, hopelessness, worthlessness, low energy, low motivation, passive thoughts of , passive, fleeting suicidal ideation Problem #2:: Anxiety Symptom:: Worry, rumination, panic attacks
--- NOTE | 2021-10-10 09:00 | BH.SGPN.GN ---
Behaviors/Verbalizations/Mental Status: [] Eye contact is poor. Motor activity is appropriate. Appearance is casual. Speech is Appropriate. Mood is depressed. Affect is flat. Thoughts are linear and logical. No evidence of psychosis. Reviewed daily check in sheet and no reports of suicidal ideations or intent. Client Response/Progress/Benefit: [] Pt participated at times during group discussions. Attentive. Daily symptom tracker notes /5 for depression, anxiety, and irritability. Emotion for today is energized. Mental health wins include choosing to be more active yesterday afternoon. A lot of good vibes yesterday. Implemented opposite action and choose not to Take a nap and instead went to the park with support. Focused on others and while there is always an undercurrent of anxiety she felt she was able to manger her thoughts, behaviors, and mood more effectively. Benefited from group support, encouragement, and feedback. Progress noted per pt report. Will continue in IOP to prevent decompensation, increase health coping, and improve functioning. Narrative Note: []
--- NOTE | 2021-10-10 10:10 | BH.SGPN.GN ---
Behaviors/Verbalizations/Mental Status: []Client alert and oriented, casual dress, hygiene tended to. Eye fair. Motor activity appropriate. Speech within normal limits. Affect constricted. mood euthymic.. Thoughts linear, logical, no signs of hallucinations or delusions. Client Response/Progress/Benefit: []Pt responded well to session AEB providing contributions at times during discussion and appeared to listen attentively to others. Pt appeared to connect well with the topic of resilience AEB nodding when others mentioned being flexible with change will help you move forward in life. Pt worked with the group during discussion of the costs of resisting change and the benefits of adapting to adversity. Attentive during psychoeducation on various copeland factors in developing personal resilience. Pt worked in small group helping with identifying benefits of each factor in fostering resilience. Pt stated they struggle most with the resilience factor of taking decisive action, which impacts them but staying stuck. Pt seemed to benefit from increasing awareness of strategies to increase personal resilience and the impacts of resilience on managing mental health sx. Will continue IOP tx to promote the use of healthy coping skills, increase confidence and prevent decompensation. Narrative Note: []
--- NOTE | 2021-10-10 11:10 | BH.SGPN.GN ---
Behaviors/Verbalizations/Mental Status: []Client alert and oriented, casually dressed and groomed. Eye contact fair. Motor activity appropriate. Speech within normal. Affect constricted. Mood Euthymic. Thoughts linear, logical, no signs of hallucinations or delusions. Client Response/Progress/Benefit: []Client engaged participant as evidenced by client engaged in activity, providing contributions to discussion and appeared to listen attentively to others. Client engaged in group activity. Able to connect how the group utilized the 10 resiliency components to be successful in challenge activity. Client stated they would like to strengthen resiliency component of moving towards goals. Client stated they will create a tracker of daily goals so can see how much they accomplish each day and week. Client appeared to benefit from increasing insight to ways in which client can improve resilience to adversity and daily stressors. Client to continue IOP tx to increase confidence, decrease anxious symptoms and prevent decompensation.
--- NOTE | 2021-10-14 09:00 | BH.SGPN.GN ---
Behaviors/Verbalizations/Mental Status: []Eye contact is fair. Motor activity is appropriate. Appearance is casual. Speech is Appropriate. Mood is dysthymic. Affect is congruent. Thoughts are linear and logical. No evidence of psychosis. Reviewed daily check in sheet and indicates a 2/5, with 5 being severe, for suicidal ideation and a 0/5 for suicidal intent. This is client's baseline for suicidal ideation. Does not appear to be imminent risk to harm self or others. future focused. Client Response/Progress/Benefit: []Client respond well to session as evidenced by listening attentively to others and sharing thoughts and feelings. Client reported their weekend was 4/10, with 10 being great. Client stated they had to work a lot throughout the weekend and have the stress of moving to new apartment. Client reported they had asked for help from their girlfriend but it turned out to be more stress then help because the girlfriend wanted to do things differently then client's plans. Client expressed frustration that tried to use assertiveness skills but others don't respond well to their assertiveness. Client is able to note being assertive and asking for help as mental health wins. Seems to recognize that despite situation not working out as desired it is still good they tried using skills. Client stated additional mental health win as taking medication this morning despite not liking taking meds. Progress noted with client using communication skills over weekend. Client to continue IOP to consistently apply healthy coping skills, challenge distorted thoughts and prevent decompensation. Narrative Note: []
--- NOTE | 2021-10-14 10:05 | BH.SGPN.GN ---
Behaviors/Verbalizations/Mental Status: []Pt alert and oriented, casually dressed and groomed. Eye contact good. Motor activity appropriate. Speech within normal limits. Affect congruent, mood euthymic. Thoughts linear, logical, no signs of hallucinations or delusions. Client Response/Progress/Benefit: []Pt was an active participant in group discussion. Attentive during psychoeducation and participated in group activity. Participated in interactive group discussion on internal and external barriers to mental health progress. Group identified examples of internal barriers as; negative thoughts, anxiety, cognitive distortions, and past experiences. Pt selina a picture of their current reality which pt described as ?I'm at a carnival waiting in line for the ride of other people's expectations. Pt stated they have awareness that this is not the best ride to be on but pt has a hard time not comparing self to others expectations. Pt also selina their desired reality which pt described as a me picking different rides and forging my own path with my own expectations. Benefited from increased awareness of current barriers to progress as well as current/desired realities. Pt will continue IOP tx to reduce negative thinking patterns, improve emotional regulation skills, and increase self-confidence. Narrative Note: []
--- NOTE | 2021-10-14 11:10 | BH.SGPN.GN ---
Behaviors/Verbalizations/Mental Status: [] Eye contact is poor. Motor activity is appropriate. Appearance is casual. Speech is Appropriate. Mood is euthymic. Affect is full. Thoughts are linear and logical. No evidence of psychosis. Client Response/Progress/Benefit: [] Pt was an active participant in group discussions. Attentive during psychoeducation. Engaged in experiential group activity. Able to identify barriers to desired reality which include: comparing self to others. Participated as group brainstormed ideas on how to cope with internal barriers that can keep individuals stuck. Benefited from group by identifying obstacles and solutions to desired reality.? Will continue in IOP to prevent decompensation, reduce negative automatic thoughts, and improve functioning. Narrative Note: []
--- NOTE | 2021-10-14 15:45 | BH.MTP_ITS ---
Treatment Plan Review Date of Admission:: 09/23/21 Date of Treatment Plan Review:: 10/14/21 Admitting Diagnoses:: Major depressive disorder, recurrent, severe without psychosis F33.2; Generalized anxiety disorder; OCD; Autism spectrum disorder Current Diagnoses:: Major depressive disorder, recurrent, severe without psychosis F33.2; Generalized anxiety disorder; OCD; Autism spectrum disorder Patient's Response to Treatment:: Pt has responded well to treatment AEB pt's improved attendance of IOP sessions and reduction of DSM-5 scores since admission. Pt contributes well during individual sessions and actively contributes during group sessions. Pt applies coping skills outside of IOP and reports overall they are utilizing coping skills and their outlook is more improved. Status of Current Problems and Symptoms: Per the DSM-5, pt's symptoms of anger and depression are resolving. Pt reports feeling like they can cope in healthier ways more often. Pt continues to struggle with distorted thinking patterns that reinforce guilt, avoidance, and negative core beliefs. Pt is improving with being more social and pt reports utilizing skills. Pt's biggest stressors are internal conflict with gender identity and self-image, unresolved trauma, and issues with maintaining healthy relationships. Problem #1 Problem Name:: Hopelessness, worthlessness, negative self-talk, and suicidal ideations Status of Goals:: Objective 1-in progress. Pt?s scores for depression have decreased by 25% since admission and they are isolating less AEB increase group attendance and working. However, pt continues to endorse self-hate, negative thinking, and feeling hopeless at times. Objective 2- in progress. Pt is working on processing their gender identity and self-image. Pt is receptive to motivational interviewing and thought challenging to help pt challenge old, unhealthy beliefs of self. Team Recommendations:: Treatment tx recommends pt continue working on this goal to further reduce distortions, increase self-love, increase healthy boundaries, and further decrease depressive symptoms. Therapist and pt discussed pt getting involved with a LGTBQ support group to help pt process their barriers and emotions to living a full authentic self. Problem #2 Problem Name:: Anxiety, avoidance, and rumination Status of Goals:: Objective 1- in progress. Pt?s DSM-5 scores remain the same since admission, which demonstrates prevention of decompensation. Pt is improving with reducing avoidance, but pt is still engaging in some safety behaviors that reinforce anxiety. Pt can continue to work on this goal to reduce intensity of symptoms. Objective 2- in progress. Pt is currently working on sett ing small exposure goals such as decision making and communicating with others. Team Recommendations:: Treatment tx recommends pt continue working on this goal as pt's DSM-5 scores for anxiety have not decreased since admission. Pt is getting better at not avoiding, but pt still admits to avoidance behaviors that hinder their mental health. Pt is also working on assertive communication and decision making skills.
--- NOTE | 2021-10-15 10:15 | BH.SGPN.GN ---
Behaviors/Verbalizations/Mental Status: [] Client alert and oriented, casually dressed and groomed. Eye contact good. Motor activity appropriate. Speech within normal limits. Affect congruent, mood anxious. Thoughts linear, logical, no signs of hallucinations or delusions. Client Response/Progress/Benefit: [] Client responded well to session AEB listening attentively to others and participating in group activity. Client still struggling to share in group dynamic. Group provided examples of benefits of having social support, including: validation, increased confidence, and better mental health. Group discussed the barriers to accessing support and different forms of support that make up our safety net. Client participated in experiential activity illustrating the impact communication, boundaries, and patience play in creating healthy support systems. Client appeared to benefit from increased knowledge of the benefits of social support and greater self-awareness. Will continue IOP tx to increase healthy communication, increase utilization of healthy coping skills, and improve overall functioning. Narrative Note: []
--- NOTE | 2021-10-15 11:15 | BH.SGPN.GN ---
Behaviors/Verbalizations/Mental Status: [] Client alert and oriented, casually dressed and groomed. Eye contact good. Motor activity appropriate. Speech within normal limits. Affect congruent, mood euthymic. Thoughts linear, logical, no signs of hallucinations or delusions. Client Response/Progress/Benefit: [] Client was an active participant throughout AEB contributing to discussion, providing personal examples, and taking notes. Client processed emotions felt in the activity and how they coped in the moment. Client provided input during discussion on the types of support our supports can provide. Client able to identify current support system and barriers that get in the way of using supports by drawing out their own support net. Client reported after identifying what type of supports they receives, they gained awareness that they could benefit from more social supports. Client identified steps to achieve this by reaching out to past friends, follow through on plans, and show up to more opportunities to meet others. Client shared increasing social supports will help them feel more confident and enjoy their life more. Client seemed to benefit from identifying the type of support client needs to work on improving. Client recommended to continue IOP tx to prevent decompensation, reduce isolation, and increase overall functioning. Narrative Note: []
--- NOTE | 2021-10-17 09:05 | BH.SGPN.GN ---
Behaviors/Verbalizations/Mental Status: [] Eye contact is good. Motor activity is appropriate. Appearance is casual. Speech is Appropriate. Mood is euthymic. Affect is full. Thoughts are linear and logical. No evidence of psychosis. Reviewed daily check in sheet and no reports of suicidal ideations or intent. Client Response/Progress/Benefit: [] Pt participated at times during the group discussion. Attentive. Mental health wins include taking my meds consistently. She shared with the group that she struggles with swallowing pills and the reasons/causes behind this. Her current psychiatric medication is in liquid form and she is proud that she took the medication 6 out of 7 days this week. Able to identify that her mood has improved with consistent use of medication and implementing skills. She is utilizing thought-challenging and thought-reframing on a daily basis. Current stressor is my dad is in town. Discussed how this impacts her mental health and the conflicted relationship they have had. Progress noted per pt report. Benefited from group support, encouragment, and feedback. Will continue in IOP to maintain gains, prevent decompensation, and increase healthy functioning. Narrative Note: []
--- NOTE | 2021-10-17 10:15 | BH.SGPN.GN ---
Behaviors/Verbalizations/Mental Status: []Pt alert and oriented, casually dressed and groomed. Eye contact good. Motor activity appropriate. Speech within normal limits. Affect constricted, mood euthymic and anxious. Thoughts linear, logical, no signs of hallucinations or delusions Client Response/Progress/Benefit: []Pt responded well to session AEB taking notes throughout and listening attentively to others. Pt was attentive throughout group activity identifying famous individuals and how they overcame failure to be successful. Pt helped group identify how fear of failure can impact mental health and relationships. Pt personally identified it leads to avoidance, self-sabotage, and not giving 100%. Pt participated in experiential activity, and pt struggled at first with being assertive, but got better as group went on. Appeared to benefit from increased knowledge of fear of failure. Pt continues to struggle with not making decisions and communicating needs. Will continue IOP tx to reduce negative thinking patterns, improve self-care and boundary setting, and reduce avoidance. Narrative Note: []
--- NOTE | 2021-10-17 11:15 | BH.SGPN.GN ---
Behaviors/Verbalizations/Mental Status: []Pt alert and oriented, casually dressed and groomed. Eye contact good. Motor activity appropriate. Speech within normal limits. Affect constricted, mood euthymic. Thoughts linear, logical, no signs of hallucinations or delusions. Client Response/Progress/Benefit: []Pt responded somewhat well to session, engaged in the experiential activity but appeared to struggle with memory and self-doubt. Pt reported fear of failure has kept pt from ?trying 100% with school?. Pt completed fear of failure worksheet and was able to identify thoughts and behaviors that reinforce personal fear of failure including ?nitpicking myself,? labeling, and listening to negative feedback from others. Pt participated in small group discussion regarding strategies to overcome fear of failure. Identified wanting to work on keeping track of their wins both big and small to overcome fear of failure. Appeared to benefit from increased knowledge of strategies to combat fear of failure and gaining self-awareness. Pt will continue IOP tx to increase self-confidence, reduce avoidance, and improve overall functioning. Narrative Note: []
--- NOTE | 2021-10-17 13:41 | BH.MDN_ITS ---
Multi-Disciplinary Note - Note 45-min Individual Time Started:: 12:15 Date: 10/17/21 Purpose of session/treatment goals addressed:: To review pt's progress, current barriers, and current symptoms. Another goal was to utilize motivational interviewing to help pt gain self-awareness and promote desired change. Eye Contact:: Fair Motor Activity:: Restless Appearance:: Casual Speech:: Rambling Mood:: Anxious Affect:: Congruent Thoughts:: Circular, No evidence of hallucinations/delusions noted Staff Interventions:: thought challenging, motivational interviewing, CBT techniques, strengths perspective, reviewed DSM-5, goal setting Client Response:: Pt responded well to session, open to meeting with therapist. Pt shared on the surface pt is fine and alright and pt shared part of this is true. Pt stated under the surface, pt feels down, sad, and lost. Discussed triggers for this which include pt's father being in town and pt's ongoing uncertainty about what they want in the future. Pt spent time processing their complicated relationship with their parents. Responded well to emotional validation, impact on self-image, and motivational interviewing. Pt shared they dream of leaving behind their old life so pt does not have to interact with family anymore. Pt wants to be able to transition to a male, but pt feels right now there are too many consequences and fears. Pt identified what they are ready for and pt stated they are ready to look at names pt would like to use if pt decided to transition. Pt will also set a boundary with their father today and pt is receptive to looking into additional LGBTQ resources. Risks/Concerns:: Pt denies any active suicidal ideations, plan, or intent as of 10/17/21. Pt denies any HI. Chronic SI that is passive and fleeting, but denies any intent. Progress Toward Goals/Plan:: Pt is making progress towards tx goals AEB a reduction of overall DSM-5 symptoms by 12% since admission. Pt has increased attendance and been consistent for the past two weeks. Pt is working on self- exploration and figuring out what pt wants to see for their life and how pt might go about this. Pt continues to struggle with negative self-talk, depr essive symptoms, anxiety, and distorted thinking. Pt will continue IOP tx to promote mood stability, improve self-love, and reduce avoidance behaviors. Time Stopped:: 13:00
--- NOTE | 2021-10-21 15:39 | BH.COMM ---
Communication Note - Communication with Client Communication Note: pt no called/no showed today
--- NOTE | 2021-10-22 09:00 | BH.SGPN.GN ---
Behaviors/Verbalizations/Mental Status: []Pt alert and oriented, casually dressed and groomed. Eye contact fair, motor activity appropriate. Mood anxious and depressed. Affect constricted. Speech within normal limits. Thoughts linear, logical, no signs of delusions or hallucinations. Reviewed pt's symptom tracker, no risk for SI plan or intent. Client Response/Progress/Benefit: [] Pt responded well to session, appearing distracted and less vocal than previous sessions. Pt reports feeling overwhelmed this morning and shared their win today was making it to IOP. Pt admits that they slept on Thursday instead of coming to IOP and this led to rumination and more depression. Pt stated they feel like my brain is not turned on today. Pt receptive to gentle thought challenging and emotional validation. Pt stated despite feeling overwhelmed, they are using coping skills like thought challenging and pt used opposite action to get to IOP today. Pt appeared to benefit from bouncing back from isolation earlier this week and having self-accountability. Pt will continue IOP tx as pt continues to struggle with prolonged mood stability, self-sabotage, avoidance, and negative thinking. Narrative Note: []
--- NOTE | 2021-10-22 14:16 | BH.MDN_ITS ---
Multi-Disciplinary Note - Note 60-min Individual Time Started:: 10:30 Date: 10/22/21 Purpose of session/treatment goals addressed:: To work on goal #2 of pt's treatment plan. Another goal was to identify strategies to prevent self- sabotage. Eye Contact:: Fair Motor Activity:: Appropriate Appearance:: Disheveled Speech:: Rambling Mood:: Anxious, Dysthymic Affect:: Constricted Thoughts:: Racing, Circular Staff Interventions:: thought challenging, motivational interviewing, CBT techniques, strengths perspective, goal setting, other - used a behavior chain analysis Client Response:: Pt responded well to session, open to meeting with therapist and receptive to gentle thought challenging. Pt admits that they did not come to IOP on Thursday because of they were sleeping and avoiding. 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 Pt shared anxious thoughts such as what if everyone knows and I don't, everyone else is ahead of me, I get overwhelmed and do bad, fail like I have before, and I'm sad the whole time. Pt shared school has always been easy for me but pt has struggled with grades and failed classes before because as soon as I do well I stop showing up because people expect me to do well and I don't want to disappoint them. Pt receptive to completing the behavior chain analysis and pt was able to gain awareness of where pt can begin to change behaviors to prevent more consequences. Pt identified goals to prevent self-sabotage which included going to buy a enterprise resource planner to make a schedule for the school year and only allowing themselves to miss no more than two classes in a row. Pt stated they know their thoughts and behaviors are not helpful, but when overwhelmed, pt struggles to see past the emotions. Reviewed distress tolerance skills, self-talk, and personal resilience. Risks/Concerns:: Pt denies any active SI, plan, or intent as of 10/22/21. Pt has chronic passive thoughts of . Pt is future oriented. Progress Toward Goals/Plan:: Pt is making progress in some areas, but pt's symptoms continue to impact functioning and self-worth. Per pt's self-report, pt is able to use thought challenging more easily than they have in the past. However, pt continues to struggle with urges to engage in self-sabotage triggered by the start of the school year this week. Pt also continues to struggle with lack of self-love, self-validation, and communicating needs. Pt receptive to goal setting in session and their insight to behaviors and thought patterns is good. Pt will continue IOP tx to reduce avoidance, increase self- worth, and increase distress tolerance. Time Stopped:: 11:30
--- NOTE | 2021-10-24 13:33 | BH.COMM ---
Communication Note - Communication with Client Communication Note: Pt no called/no showed for IOP sessions today. Therapist unable to leave a message and sent an email.
--- NOTE | 2021-10-29 10:50 | BH.SGPN.GN ---
Behaviors/Verbalizations/Mental Status: [] Client alert and oriented, casually dressed and groomed. Eye contact good. Motor activity appropriate. Speech within normal limits. Affect congruent, mood euthymic and anxious. Thoughts linear, logical, no signs of hallucinations or delusions. Client Response/Progress/Benefit: [] Client responded well to session, contributing to discussion and engaged during the activity. Group identified the benefits of change which included: personal growth, improving mental health, experiencing more, and better relationships. Worked with the group to identify barriers to change, which included: uncomfortable emotions such as anxiety and depression, lack of motivation, lack of energy, and confidence. Client participated along with group in activity where they identified and discussed the emotions related to change. Client participated in discussion on the change process and personal experiences with implementing change in past. Benefited from increased awareness and understanding of emotions, benefits, and barriers related to change. Will continue IOP tx to continue to combat distortions that reinforce low self-esteem, anxiety, and depression and prevent decompensation. Narrative Note: []
--- NOTE | 2021-10-29 11:00 | BH.SGPN.GN ---
Behaviors/Verbalizations/Mental Status: [] Client alert and oriented, casually dressed and groomed. Eye contact good. Motor activity appropriate. Speech within normal limits. Affect congruent, mood euthymic. Thoughts linear, logical, no signs of hallucinations or delusions. Client Response/Progress/Benefit: [] Client responded well to session, attentive AEB participating in activity and providing input in group. Did well to process activity and work with group to relate the strategies used to overcome barriers in the activity to managing change in own life. Client shared a change they would like to make is be more organized with their emotions and daily tasks. Client stated currently reports being in the action stage. Identified goal to work on to achieve change behavior would be to utilize their meeting planner on a everyday basis. Appeared to benefit from identifying a small goal to work towards. Client will continue IOP tx to decrease cognitive distortions, gain healthy coping skills, and improve daily functioning. Narrative Note: []
--- NOTE | 2021-10-29 13:53 | BH.MDN_ITS ---
Multi-Disciplinary Note - Note 45-min Individual Time Started:: 09:25 Date: 10/29/21 Purpose of session/treatment goals addressed:: To address current symptoms, stressors, and behaviors impacting pt's mental health and wellness. Another goal was to utilize motivational interviewing and discuss plan of care. Eye Contact:: Poor Motor Activity:: Appropriate Appearance:: Casual Speech:: Soft Mood:: Dysthymic Affect:: Constricted Thoughts:: Linear, Logical, No evidence of hallucinations/delusions noted Staff Interventions:: thought challenging, motivational interviewing, CBT techniques, strengths perspective, goal setting Client Response:: Pt responded somewhat well to session, more withdrawn than previous sessions, but eventually opened up with therapist. Pt shared feeling overwhelmed since the start of school, but stated they have been showing up to class and they bought a mechanical planner. 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 Pt is utilizing skills like opposite action and pt has been spending time with friends. Pt's biggest stressor right now is their relationship with their girlfriend. Pt describes the relationship as unhealthy and pt reports awareness it is unhealthy. Pt reports not wanting to break up because they now live together and it would be harder if I ended it. Pt shared their plan is to detach themselves from their girlfriend and keep themselves busy so pt does not have spend time with the girlfriend. Pt did not see any cons to this option and shared maybe she'll get bored and end things with me. Pt is in the contemplation stage and is not ready to set boundaries within the relationship, but understands that staying is harming their mental health. Pt willing to work on not numbing their emotions towards the relationship as this could result in more depression. Pt agrees to talk to their friends about the relationship rather than suppressing it and avoiding it. Pt encouraged to continue going to class and utilizing opposite action. Risks/Concerns:: Pt has chronic thoughts of , but denies any active SI, plan, or intent. Pt is future oriented despite being overwhelmed. Pt denies any HI. Progress Toward Goals/Plan:: Pt reports a regression in symptoms triggered by the start of school and ongoing interpersonal relationship issues. Pt presents as depressed, apathetic, and low energy during session today. Pt's last week was scheduled for next week, but if pt's symptoms do not decrease, pt will be encouraged to continue IOP. Pt's attendance and progress have been variable throughout IOP tx due to ongoing stressors that pt self-reports not being ready to address. Pt will continue IOP tx to prevent self-sabotaging, increase distress tolerance, and improve daily functioning. Time Stopped:: 10:05
== END 2021-10-30 23:59 ==
LOC: BHIOP 07:39
PROVIDERS: Referring Provider Psychiatry & Neurology Psychiatry; Visit Provider Psychiatry & Neurology Psychiatry
DX: F33.2 Major depressive disorder, recurrent severe without psychotic features (principal); F41.1 Generalized anxiety disorder; F42.9 Obsessive-compulsive disorder, unspecified; F84.0 Autistic disorder; Z91.51 Personal history of suicidal behavior; Z79.899 Other long term (current) drug therapy
CPT/HCPCS: S9480; 90832; 90834; 90837; 90853

== ENCOUNTER 2021-10-31 07:41 | Outpatient (RCR) | payer BC, SELFPAY ==
--- NOTE | 2021-11-07 13:49 | BH.COMM ---
Communication Note - Communication with Client Communication Note: pt no called/ no showed today for individual and group therapy.
--- NOTE | 2021-11-08 14:36 | BH.COMM ---
Communication Note - Communication with Client Communication Note: Pt did not attend IOP tx this week due to school. Attendance has been an ongoing issue for pt and pt understands that if they do not attend twice next week, they will be discharged. Spoke with pt on the phone today and pt shared doing fine and just keeping busy.
--- NOTE | 2021-11-12 09:05 | BH.SGPN.GN ---
Behaviors/Verbalizations/Mental Status: [] Eye contact is good. Motor activity is appropriate. Appearance is casual. Speech is Appropriate. Mood is anxious. Affect is congruent. Thoughts are linear and logical. No evidence of psychosis. Reviewed daily check in sheet and no reports of suicidal ideations or intent. Client Response/Progress/Benefit: [] Pt participated at times during the group discussion. Attentive. Daily symptom tracker notes 3/5 for depression and irritability. 2/5 for anxiety. Shared that her attendance has been poor in IOP due to returning to school. ?I?m busy which is good however I know coming here is good for my mental health?. She shared all her current responsibilities which is at times overwhelming. She is surprised that she is managing all these stressors well, however she is continuing to complete self-care and set aside time for herself. Emotion for today is ?enthusiastic?. Progress noted per pt report. Benefited from group support, encouragement, and feedback. Will continue in IOP to maintain gains and prevent decompensation. Narrative Note: []
--- NOTE | 2021-11-12 11:05 | BH.SGPN.GN ---
Behaviors/Verbalizations/Mental Status: [] Client alert and oriented, casually dressed and neatly groomed. Eye contact good. Motor activity appropriate. Speech within normal limits. Affect congruent, mood euthymic, Thoughts linear, logical, no signs of hallucinations or delusions. Client Response/Progress/Benefit: [] Client was an active participant in group discussion and providing good insight to peers. Reviewed safety behaviors they engage in that reinforce anxiety. Attentive during psychoeducation on mindfulness coping skills and their impact on mental health wellness. The group worked together to brainstorm anxiety reduction strategies. Client shared menu of relaxation strategies they will utilize which included utilizing a weighted blanket and walking. Client seemed to benefit from increased repertoire of anxiety reduction skills. Client will continue IOP tx to increase self worth, reduce anxious thoughts, and gain healthy coping skills. Narrative Note: []
--- NOTE | 2021-11-12 11:22 | BH.MDN_ITS ---
Multi-Disciplinary Note - Note 45-min Individual Time Started:: 10:20 Date: 11/12/21 Purpose of session/treatment goals addressed:: To address current symptoms, stressors, application of coping skills, and combat distortions. Another goal was to discuss discharge and aftercare. Eye Contact:: Poor Motor Activity:: Restless Appearance:: Casual Speech:: Rambling Mood:: Euthymic, Anxious Affect:: Congruent Thoughts:: Racing, Circular, No evidence of hallucinations/delusions noted Staff Interventions:: thought challenging, motivational interviewing, discharge planning, strengths perspective, other - Pt asked therapist to get more information on gender affirming care at [facility] Client Response:: Pt responded well to session, open to meeting with therapist. Pt's last session was 10/29/21, so pt had a lot of stressors to talk about. Pt shared they have been going to classes more consistently and using opposite action. Pt has also been consistently spending time with friends. Pt processed several stressors and how pt managed emotions in these situations. Pt continues to feel easily overwhelmed, but pt is using more healthy coping skills than before. Pt and their girlfriend are still together, but almost broke up last week per pt. Pt reports being unhappy in the relationship, but too busy to think about it. Pt laughed and acknowledges that not thinking about it is not effective. Pt also shared they continue to struggle with their gender identity and shared I think am I going to grow up and be an old person who just never let themselves be happy. Pt asked therapist if therapist could get more info rmation about gender affirming care at [facility]. Pt feels like they will be ready to graduate [employer] next week. Pt will call their outpatient therapist to schedule an appointment. Risks/Concerns:: Pt denies any active SI, plan, or intent as of 11/12/21. Pt has chronic thoughts of , but denies any risk to self. Pt is future oriented. Progress Toward Goals/Plan:: Pt is demonstrating progress in managing stressors outside of IOP tx and more consistently attending their college classes. Pt's attendance in IOP has been sporadic, but when pt is present they are engaged and receptive. Pt reports ongoing anxiety and depressive symptoms, but they are less severe than before. Pt continues to struggle most with constantly feeling overwhelmed, relationship issues, and gender identity. Pt is receptive to getting more information about the [facility]. Pt will continue IOP tx to reinforce healthy coping skills and increase assertive communication skills. Time Stopped:: 11:05
--- NOTE | 2021-11-14 10:15 | BH.SGPN.GN ---
Behaviors/Verbalizations/Mental Status: []Pt alert and oriented, neatly dressed and groomed. Eye contact poor. Motor activity appropriate. Speech within normal limits. Affect constricted, mood distracted and anxious. Thoughts linear, logical, no signs of hallucinations or delusions. Client Response/Progress/Benefit: []Pt responded somewhat well to session. Pt was quiet and declined to shared, but appeared to be listening to peers. Group discussed the benefits of managed anger and anger as a secondary emotion. Pt shared perspective on negatives from acting out in anger as stress and more mental health issues.? Pt completed their anger iceberg but declined to share. Pt struggles at times with participation, which could be a barrier to tx. ??Appeared to benefit from increased knowledge of the underlying emotions that impact anger and increased self-awareness of the internal and external consequences of anger. Will continue IOP tx to reinforce healthy coping skills and establish aftercare. Narrative Note: []
--- NOTE | 2021-11-19 11:48 | BH.COMM ---
Communication Note - Communication with Client Communication Note: Pt no called/no showed for their last day of IOP. Pt will be discharged as discussed last week.
--- NOTE | 2021-11-19 11:49 | BH.DS_ITS ---
Discharge Summary - Demographics Date of Admission:: 09/23/21 Discharge Date: 11/19/21 Presenting Problems at Admission:: Pt is a 21-year-old non-binary individual with a history of MDD, NICHOLAS, and OCD. Pt was referred to [facility] by their family due to recent decompensation in symptoms and suicidal ideations. Pt completed IOP last year in April. At admission, pt reported I have been going downhill for awhile. At admission, pt endorsed low motivation, low energy, hopelessness, worthlessness, crying spells, ruminations, and increased irritability. No active SI, but admits to having daily fleeting SI with thoughts of methods. Pt reports symptoms were impacting their ability to function in college and causing breakdown moments. Discharge Diagnoses:: Major depressive disorder, recurrent, severe without psychosis F33.2; Generalized anxiety disorder; OCD; Autism spectrum disorder Reason for Discharge:: Pt was scheduled to complete IOP tx today, but did not show. Pt had reported last week that they met the maximum benefit of IOP tx and will continue with outpatient counseling and psychiatry. - Treatment Progress During Treatment & Response: Pt did well at the beginning of IOP tx with attendance and engagement. However, once college started back up, pt's attendance became more variable as well as their engagement. Pt contributed well during individual sessions and some days pt contributed during group discussions, but not consistently. Pt was able to challenge negative thinking more easily than before and pt reported increased consistency with their college classes which is progress. Issues Still to be Addressed:: Gender identity, negative core beliefs and self- talk, avoidance, self-reported self-sabotaging behaviors, ruminations, dif ficulty setting boundaries and communicating needs, relationship issues, and constantly feeling overwhelmed. Discharge Recommendations/Instructions:: Pt did not show for their last day, so therapist was unable to gather DSM-5 scores and outpatient appointment dates. Pt planned to follow up with their outpatient counselor, Majo Linares, at [facility] for outpatient medication management. Pt was also provided with information for the [facility] per pt's request. Discharge Handout: Complete Discharge Handout with client on aftercare options and continuity of care.
== END 2021-11-19 14:22 | disposition home or self-care (01) ==
LOC: BHIOP 07:41
PROVIDERS: Referring Provider Psychiatry & Neurology Psychiatry; Visit Provider Psychiatry & Neurology Psychiatry
DX: F33.2 Major depressive disorder, recurrent severe without psychotic features (principal); F41.1 Generalized anxiety disorder; F84.0 Autistic disorder; F42.9 Obsessive-compulsive disorder, unspecified
CPT/HCPCS: S9480; 90834; 90853